=== PATIENT | male | born 1975 | race Hispanic/Latino ===

== ENCOUNTER → 2020-09-30 | Emergency (ER) | LOC: ER 19:39 | DX: Z02.9 Encounter for administrative examinations, unspecified (principal) ==

== ENCOUNTER 2025-03-28 22:32 | Emergency (ER) | payer SELFPAY ==
--- OUTSIDE RECORDS SUMMARY | 2025-03-28 22:58 | XMS REPORT | Continuity of Care Document ---
Author Name Unknown Address [address] 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 Name Role Phone SUMMER ESQUEDA Primary Care Physician Twin Yanez Attending Clinician Unavailable GUILLE RAMIREZ Attending Clinician Unavailable LARRY YUAN Attending Clinician Unavailable CHRISTIAN STONE Attending Clinician Unavailabl DENNIS Gautam Attending Clinician Unavailab SANDRA Rhodes Attending Clinician Unavailable IHDE_G Attending Clinician Unavailable Мария Berry Attending Clinician Unavailab RENU Dexter Attending Clinician Unavailable ELENA MERIDA Attending Clinician Unavailable AMBREEN_FARHANA Attending Clinician Unavailable RICHIE MUÑOZ MD(DO NOT USE) Attending Clinic carlitos Unavailable STEPHAN GRAY Attending Clinician Unavailable DENG LOONEY Attending Clinician Unavailabl kinjal Motley Attending Clinician Unavailable PEACE LEIVA Attending Clinician Unavailable Jw Jurado I. Attending Clinician Unavailabl SARI Giraldo Attending Clinician Unavailable CHERY CAMARGO Attending Clinician Unavaila SHANNAN Johnson Attending Clinician Unavailable GRIFFIN BRASHER Attending Clinician Unavailabl e SNEHA JACINTO Attending Clinician Unavailab JOSÉ MIGUEL Samson Attending Clinician Unavailable STEFFI FERNÁNDEZ Attending Clinician Unav LANRE Leggett Attending Clinician UnavailRYAN Atkinson Attending Clinician Unavail able IDA HAZEL Attending Clinician Unavail able RENAE RIVAS Attending Clinician Unavailable MT MCELROY Attending Clinician Unavailable TABITHA CHO Attending Clinician Unavail able JACOB MOTT Attending Clinician Unavailable Kwabena Miramontes Attending Clinician Unavailab JASMYNE Gutierrez Attending Clinician Unavailable KERRI FISH Attending Clinician Unavailable MADDY SCHREIBER Attending Clinician Unavailable KARUNA BUSTOS Attending Clinician Unavailab YURIY Brito Attending Clinician Unavailable JEFFERY MATA Attending Clinician UnaSAAD Estes Attending Clinician Unavailable IHDE_G Admitting Clinician Unavailable AMBREEN_FARHANA Admitting Clinician Unavailable Tiesha Admitting Clinician Unavailable RYAN SERVIN Admitting Clinician Unavail able Payers Payer Name Policy Type Policy Number Effective Date Expirati on Date Source [id number] [facility] [id number] 2021 00:00:00 2022 00:00:00 [facility] [id number] Problems Condition Name Condition Details Condition Category Status Onset Date Resolution Date Last Treatment Date Treating Clinician Comments Source Obese Obese Problem Active 08-31 00:00: 00 [facility] Acute urinary tract infection Acute Urinary Tract Infection Problem Active 3 00:00: 00 [facility] Menopausal symptom Menopausal Symptom Problem Active 07-24 00:00: 00 [facility] Fatigue Fatigue Problem Active 07-24 00:00: 00 [facility] Stenosis of cervix Stenosis of Cervix Problem Active 2023-07 2 00:00: 00 [facility] Abnormal uterine bleeding Abnormal Uterine Bleeding Problem Active 2023-07 00:00: 00 [facility] Irregular periods Irregular Periods Problem Active 2023-07 1 00:00: 00 [facility] Hypothyroi dism Hypothyroi dism Problem Active 2023-07 0 00:00: 00 [facility] Anxiety Anxiety Problem Active 2023-07 0 00:00: 00 [facility] Candidiasi s Candidiasi s Problem Active [facility] 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 [facility] Obesity Obesity Problem Active [facility] Anxiety disorder Anxiety Disorder Problem Active [facility] Generalize d anxiety disorder Generalize d Anxiety Disorder Problem Active [facility] Dysthymia Dysthymia Problem Active [facility] 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 Problem Active [facility] Mild depression Mild Depression Problem Active [facility] Lesion of eyelid Lesion of Eyelid Problem Active [facility] Otitis media Otitis Media Problem Active [facility] Otalgia Otalgia Problem Active [facility] Acute sinusitis Acute Sinusitis Problem Active [facility] Nasal discharge Nasal Discharge Problem Active [facility] Sinusitis Sinusitis Problem Active [facility] Seasonal allergic rhinitis Seasonal Allergic Rhinitis Problem Active [facility] Nasal obstructio n Nasal Obstructio n Problem Active [facility] Influenza Influenza Problem Active [facility] Asthma Asthma Problem Active [facility] Reactive airway disease Reactive Airway Disease Problem Active [facility] Toothache Toothache Problem Active [facility] Gastroesop hageal reflux disease Gastroesop hageal Reflux Disease Problem Active [facility] Irritable bowel syndrome Irritable Bowel Syndrome Problem Active [facility] Cervical disc disorder Cervical Disc Disorder Problem Active [facility] Spasm of back muscles Spasm of Back Muscles [facility] Plantar fasciitis Plantar Fasciitis Problem [facility] Spasm Spasm Problem Active [facility] Influenza- like symptoms Influenza- like Symptoms Problem Active [facility] Failure to lose weight Failure to Lose Weight Problem Active [facility] Dyspnea Dyspnea Problem Active [facility] Expiratory wheezing Expiratory Wheezing Problem Active [facility] Inspirator y wheezing Inspirator y Wheezing Problem Active [facility] Wheezing Wheezing Problem Active [facility] Tight chest Tight Chest Problem [facility] Increased frequency of urination Increased Frequency of Urination Problem [facility] Urinary symptoms Urinary Symptoms Problem [facility] Mammograph ic breast mass Mammograph ic Breast Mass Problem Active [facility] Inadequate vitamin B12 intake Inadequate Vitamin B12 Intake Problem Active [facility] Hypertroph y of nasal turbinates Hypertroph y of Nasal Turbinates Problem Active [facility] Gastroente ritis Problem [facility] Greater trochanter ic bursitis of right hip Problem [facility] Headache Problem [facility] Hypokalemi a Problem [facility] Hypoxemia Problem [facility] Sprain and strain of elbow and forearm Problem [facility] Abdominal cramping Problem [facility] Vaginal bleeding Problem [facility] Influenza due to influenza A virus Problem [facility] Left inguinal pain Problem [facility] Strain [facility] lumbar region Problem [facility] Microcytic anemia Problem [facility] Multifocal pneumonia Problem [facility] Nausea Problem [facility] Plantar fascial fibromatos is Problem [facility] Postnasal drip Problem [facility] Inflammati on of sacroiliac joint Problem [facility] Sinus tachycardi a Problem [facility] Sprain Problem [facility] Sprain of ankle Problem [facility] Sprain of foot Problem [facility] Sprain of hip Problem [facility] Sprain of toe Problem [facility] Tachycardi a Problem [facility] Acute upper respirator y infection Problem [facility] Fluid in endometria l cavity Problem [facility] Pelvic cramping Problem [facility] Abdominal pain Problem [facility] Acute bronchitis Problem [facility] Acute infective gastroente ritis Problem [facility] Acute wheezy bronchitis Problem [facility] Bronchitis Problem [facility] Infection due to severe acute respirator y syndrome coronaviru s 2 (SARS-CoV- 2) Problem [facility] Chest pain Problem [facility] Cholelithi asis with cholecysti tis Problem [facility] Chronic low back pain Problem [facility] Constipati on Problem [facility] Cough Problem [facility] Dehydratio n Problem [facility] Dysfunctio nal uterine bleeding Problem [facility]ever Problem [facility] Gastroente ritis Problem [facility] Sacroiliit is Sacroiliit is Problem [facility] Chronic pain syndrome Chronic pain syndrome Problem [facility] Other chronic pain Other chronic pain Problem [facility] Greater trochanter ic bursitis of right hip Greater trochanter ic bursitis of right hip Problem [facility] Greater trochanter ic bursitis of left hip Greater trochanter ic bursitis of left hip Problem [facility] Allergies, Adverse Reactions, Alerts Allergy Name Allergy Type Status Severity Reaction(s) Onset Date Inactive Date Treating Clinician Comments Source Carisopr odol ([id number]) Allergy to substanc e Active Unknown 2016-07 00:00: 00 [facility] Lyrica Allergy to substanc e Active [facility] Soma Allergy to substanc e Active [facility] Ultram Allergy to substanc e Active [facility] Social History Social Habit Start Date Stop Date Quantity Comments Source History of Tobacco Use [facility] Sex Assigned At [facility] Smoking Status Start Date Stop Date Source Never Smoker [facility] Medications Ordered Medication Name Filled Medication Name Start Date Stop Date Current Medication? Ordering Clinician Indication Dosage Frequency Signature (SIG) Comments Components Source Ketorolac Tromethamin e (Toradol 10 Mg*) 10 Mg TAB Ketorolac Tromethamin e (Toradol 10 Mg*) 10 Mg TAB 03-07 01:14: 00 Yes 1{tbl} [facility] HYDROcodone -Acetaminop hen 10-325 MG HYDROcodone -Acetaminop hen 10-325 MG - 00:00: 00 No 1{table t_as_ne eded} QD HYDROcodon e-Acetamin ophen 10-325 MG Medrol 4 MG Medrol 4 MG - 00:00: 00 No Medrol 4 MG Pseudoephed -Bromphen-D m (Bromphen/P seudoephedr ine 30-2-10 Mg/5ML) 1 Syp Syrup Pseudoephed -Bromphen-D m (Bromphen/P seudoephedr ine 30-2-10 Mg/5ML) 1 Syp Syrup 03-29 11:45: 00 Yes 5 [facility] Albuterol (Ventolin Hfa *) 90 Mcg/Act INH Albuterol (Ventolin Hfa *) 90 Mcg/Act INH 03-29 11:44: 00 Yes 2 [facility] Oseltamivir Phosphate (Tamiflu *) 75 Mg CAP Oseltamivir Phosphate (Tamiflu *) 75 Mg CAP 03-29 11:44: 00 Yes 75mg [facility] Nirmatrelvi r-Ritonavir 300/100 Mg (Paxlovid 300MG/100MG ) 1 Tab Tab Ther Pack Nirmatrelvi r-Ritonavir 300/100 Mg (Paxlovid 300MG/100MG ) 1 Tab Tab Ther Pack 2022-07 21:16: 00 Yes 1 [facility] Prednisone (Prednisone *) 20 Mg TAB Prednisone (Prednisone *) 20 Mg TAB 2022-07 21:15: 00 Yes 40mg [facility] Pantoprazol e Sodium (Protonix Ec *) [address] Pantoprazol e Sodium (Protonix Ec *) [address] 2022-07 09:52: 00 Yes 40mg [facility] Cephalexin Monohydrate (Keflex *) 500 Mg CAP Cephalexin Monohydrate (Keflex *) 500 Mg CAP 2022-07 00:01: 00 06-01 10:52 :00 No 500mg [facility] Methocarbam ol 750 MG Methocarbam ol 750 MG 02-21 00:00: 00 No 1{table t} Methocarba mol 750 MG Naproxen (Naproxen 500 Mg *) 500 Mg TAB Naproxen (Naproxen 500 Mg *) 500 Mg TAB 2020-07 018 01:00: 00 06-09 06:48 :00 No 1{tbl} [facility] metoprolol tartrate 25 mg tablet TAKE ONE (1) TABLET(S) BY MOUTH TWICE A DAY. metoprolol tartrate 25 mg tablet TAKE ONE (1) TABLET(S) BY MOUTH TWICE A DAY. 2018-07 0 00:00: 00 No metoprolol tartrate 25 mg tablet TAKE ONE (1) TABLET(S) BY MOUTH TWICE A DAY. [facility] Fluoxetine Hcl * (Fluoxetine 20 Mg (Prozac) *) 20 Mg CAP Fluoxetine Hcl * (Fluoxetine 20 Mg (Prozac) *) 20 Mg CAP 12-31 13:08: 09 12-31 13:08 :00 No 20mg [facility] Levothyroxi ne Sodium (Synthroid 25 Mcg*) 25 Mcg TAB Levothyroxi ne Sodium (Synthroid 25 Mcg*) 25 Mcg TAB 12-31 13:08: 08 12-31 13:08 :00 No 25ng [facility] Norethindro ne/Ethinyl Est * (Necon 35 *) 1 Tab TAB Norethindro ne/Ethinyl Est * (Necon 35 *) 1 Tab TAB 12-31 13:08: 08 12-31 13:08 :00 No 1{tbl} [facility] Azithromyci n (Zithromax *) 500 Mg TAB Azithromyci n (Zithromax *) 500 Mg TAB 12-30 05:09: 00 02-11 11:36 :00 No 500mg [facility] Metronidazo le (Flagyl *) 500 Mg TAB Metronidazo le (Flagyl *) 500 Mg TAB 12-30 05:09: 00 02-11 11:36 :00 No 500mg [facility] Ondansetron Hcl (Zofran *) 4 Mg TAB Ondansetron Hcl (Zofran *) 4 Mg TAB 12-30 05:09: 00 12-31 13:08 :00 No 1{tbl} [facility] Tramadol/Ap ap * (Ultracet 37.5/325 Mg *) 1 Tab TAB Tramadol/Ap ap * (Ultracet 37.5/325 Mg *) 1 Tab TAB 12-30 05:09: 00 12-31 13:08 :00 No 1{tbl} [facility] Azithromyci n (Zithromax Z-Richard *) 1 Tab TAB Azithromyci n (Zithromax Z-Richard *) 1 Tab TAB 2015-07 14:32: 00 12-31 13:08 :00 No 250mg [facility] Cefdinir (Omnicef*) 300 Mg CAP Cefdinir (Omnicef*) 300 Mg CAP 2015-07 14:32: 00 12-31 13:08 :00 No 1 [facility] Levalbutero l Hcl Levalbutero l Hcl 2015-07 14:32: 00 12-31 13:08 :00 No 1.25mg [facility] Metoprolol Tartrate Metoprolol Tartrate 2015-07 14:32: 00 12-31 13:08 :00 No 25mg [facility] Promethazin e/Codeine Promethazin e/Codeine 2015-07 14:32: 00 12-31 13:08 :00 No 5mL [facility] Acetaminoph en W/ Codeine #3 * (Tylenol Codeine #3 300MG/30MG *) 1 Tab TAB Acetaminoph en W/ Codeine #3 * (Tylenol Codeine #3 300MG/30MG *) 1 Tab TAB 2014-07 09:06: 00 09-16 06:09 :00 No 1 [facility] Tramadol Hcl (Ultram *) 50 Mg TAB Tramadol Hcl (Ultram *) 50 Mg TAB 2012-07 11:53: 00 05-04 12:00 :00 No 50mg [facility] levothyroxi ne 75 mcg capsule Take 1 capsule every day by oral route. levothyroxi ne 75 mcg capsule Take 1 capsule every day by oral route. No 1capsul e(s) Q1D levothyrox ine 75 mcg capsule Take 1 capsule every day by oral route. [facility] lorazepam lorazepam No lorazepam [facility] metoprolol succinate ER 25 mg tablet,exte nded release 24 hr Take 1 tablet every day by oral route. metoprolol succinate ER 25 mg tablet,exte nded release 24 hr Take 1 tablet every day by oral route. No 1 Q1D metoprolol succinate ER 25 mg tablet,ext ended release 24 hr Take 1 tablet every day by oral route. [facility] estradiol 0.1 mg/24 hr semiweekly transdermal patch Apply 1 patch twice a week by transdermal route for 90 days. estradiol 0.1 mg/24 hr semiweekly transdermal patch Apply 1 patch twice a week by transdermal route for 90 days. No 1patch( es) Q3.5D estradiol 0.1 mg/24 hr semiweekly transderma l patch Apply 1 patch twice a week by transderma l route for 90 days. [facility] progesteron e micronized 200 mg capsule Take 1 capsule every day by oral route for 90 days. progesteron e micronized 200 mg capsule Take 1 capsule every day by oral route for 90 days. No 1capsul e(s) Q1D progestero ne micronized 200 mg capsule Take 1 capsule every day by oral route for 90 days. [facility] levothyroxi ne 50 mcg capsule Take 1 capsule every day by oral route. levothyroxi ne 50 mcg capsule Take 1 capsule every day by oral route. No 1capsul e(s) Q1D levothyrox ine 50 mcg capsule Take 1 capsule every day by oral route. [facility] Metoprolol Succinate ER 25 MG Metoprolol Succinate ER 25 MG No Metoprolol Succinate ER 25 MG Colchicine 0.6 MG Colchicine 0.6 MG No Colchicine 0.6 MG Famotidine 20 MG Famotidine 20 MG No Famotidine 20 MG Levothyroxi ne Sodium 75 MCG Levothyroxi ne Sodium 75 MCG No Levothyrox ine Sodium 75 MCG ibuprofen 800 mg tablet TAKE 1 TABLET (800 MG TOTAL) BY MOUTH EVERY 8 (EIGHT) HOURS IF NEEDED FOR MILD PAIN ibuprofen 800 mg tablet TAKE 1 TABLET (800 MG TOTAL) BY MOUTH EVERY 8 (EIGHT) HOURS IF NEEDED FOR MILD PAIN No ibuprofen 800 mg tablet TAKE 1 TABLET (800 MG TOTAL) BY MOUTH EVERY 8 (EIGHT) HOURS IF NEEDED FOR MILD PAIN [facility] levothyroxi ne 50 mcg tablet TAKE 1 TABLET (50 MCG TOTAL) BY MOUTH 1 (ONE) TIME EACH DAY levothyroxi ne 50 mcg tablet TAKE 1 TABLET (50 MCG TOTAL) BY MOUTH 1 (ONE) TIME EACH DAY No levothyrox ine 50 mcg tablet TAKE 1 TABLET (50 MCG TOTAL) BY MOUTH 1 (ONE) TIME EACH DAY [facility] levothyroxi ne 75 mcg tablet TAKE 1 TABLET (75 MCG TOTAL) BY MOUTH 1 (ONE) TIME EACH DAY levothyroxi ne 75 mcg tablet TAKE 1 TABLET (75 MCG TOTAL) BY MOUTH 1 (ONE) TIME EACH DAY No levothyrox ine 75 mcg tablet TAKE 1 TABLET (75 MCG TOTAL) BY MOUTH 1 (ONE) TIME EACH DAY [facility] lorazepam 0.5 mg tablet TAKE 1 TABLET (0.5 MG TOTAL) BY MOUTH EVERY 6 (SIX) HOURS IF NEEDED FOR ANXIETY lorazepam 0.5 mg tablet TAKE 1 TABLET (0.5 MG TOTAL) BY MOUTH EVERY 6 (SIX) HOURS IF NEEDED FOR ANXIETY No lorazepam 0.5 mg tablet TAKE 1 TABLET (0.5 MG TOTAL) BY MOUTH EVERY 6 (SIX) HOURS IF NEEDED FOR ANXIETY [facility] Macrobid 100 mg capsule Take 1 capsule every 12 hours by oral route for 7 days, for Urinary tract infection.. Macrobid 100 mg capsule Take 1 capsule every 12 hours by oral route for 7 days, for Urinary tract infection.. No 1capsul e(s) Q12H Macrobid 100 mg capsule Take 1 capsule every 12 hours by oral route for 7 days, for Urinary tract infection. . [facility] methocarbam ol 750 mg tablet TAKE ONE (1) TABLET(S) BY MOUTH TWICE A DAY. methocarbam ol 750 mg tablet TAKE ONE (1) TABLET(S) BY MOUTH TWICE A DAY. No methocarba mol 750 mg tablet TAKE ONE (1) TABLET(S) BY MOUTH TWICE A DAY. [facility] metoprolol succinate ER 25 mg tablet,exte nded release 24 hr TAKE ONE (1) TABLET(S) BY MOUTH ONCE A DAY. metoprolol succinate ER 25 mg tablet,exte nded release 24 hr TAKE ONE (1) TABLET(S) BY MOUTH ONCE A DAY. No metoprolol succinate ER 25 mg tablet,ext ended release 24 hr TAKE ONE (1) TABLET(S) BY MOUTH ONCE A DAY. [facility] montelukast 10 mg tablet TAKE 1 TABLET (10 MG TOTAL) BY MOUTH EVERY NIGHT montelukast 10 mg tablet TAKE 1 TABLET (10 MG TOTAL) BY MOUTH EVERY NIGHT No montelukas t 10 mg tablet TAKE 1 TABLET (10 MG TOTAL) BY MOUTH EVERY NIGHT [facility] progesteron e micronized 200 mg capsule TAKE 1 CAPSULE EVERY DAY BY ORAL ROUTE FOR 90 DAYS. progesteron e micronized 200 mg capsule TAKE 1 CAPSULE EVERY DAY BY ORAL ROUTE FOR 90 DAYS. No progestero ne micronized 200 mg capsule TAKE 1 CAPSULE EVERY DAY BY ORAL ROUTE FOR 90 DAYS. [facility] Pyridium 100 mg tablet Take 1 tablet 3 times a day by oral route for 2 days, for Pain with urination. Pyridium 100 mg tablet Take 1 tablet 3 times a day by oral route for 2 days, for Pain with urination. No 1 TID Pyridium 100 mg tablet Take 1 tablet 3 times a day by oral route for 2 days, for Pain with urination. [facility] estradiol 0.1 mg/24 hr semiweekly transdermal patch APPLY 1 PATCH TWICE A WEEK BY TRANSDERMAL ROUTE FOR 30 DAYS. estradiol 0.1 mg/24 hr semiweekly transdermal patch APPLY 1 PATCH TWICE A WEEK BY TRANSDERMAL ROUTE FOR 30 DAYS. No estradiol 0.1 mg/24 hr semiweekly transderma l patch APPLY 1 PATCH TWICE A WEEK BY TRANSDERMA L ROUTE FOR 30 DAYS. [facility] hydrocodone 10 mg-acetamin ophen 325 mg tablet TAKE ONE (1) TABLET(S) BY MOUTH ONCE A DAY NEEDED FOR 30 DAYS. hydrocodone 10 mg-acetamin ophen 325 mg tablet TAKE ONE (1) TABLET(S) BY MOUTH ONCE A DAY NEEDED FOR 30 DAYS. No hydrocodon e 10 mg-acetami nophen 325 mg tablet TAKE ONE (1) TABLET(S) BY MOUTH ONCE A DAY NEEDED FOR 30 DAYS. [facility] Vital Signs Vital Name Observation Time Observation Value Comments S ource Height 2025-03-07 00:01:00 [id number] cm [facility] Weight 2025-03-07 00:01:00 63.091420 kg [facility] BMI (Body Mass Index) 2025-03-07 00:01:00 28.3 kg/m2 [facility] Height 2025-03-04 22:00:00 149.447125 cm [facility] Weight 2025-03-04 22:00:00 63.464869 kg [facility] BMI (Body Mass Index) 2025-03-04 22:00:00 28.3 kg/m2 [facility] height 2024-09-17 13:15:00 59 [in_i] [facility] weight-kg 2024-09-17 13:15:00 68.04 kg [facility] bmi 2024-09-17 13:15:00 30.29 kg/m2 [facility] heart rate 2024-09-17 13:15:00 86 /min [facility] blood pressure systolic 2024-09-17 13:15:00 117 mm[Hg] [facility] blood pressure diastolic 2024-09-17 13:15:00 70 mm[Hg] [facility] BMI (Body Mass Index) 2024-08-31 00:00:00 32.9 kg/m2 [facility] BP Diastolic 2024-08-31 00:00:00 79 mm[Hg] [facility] Body Weight 2024-08-31 00:00:00 2608 [oz_av] Kathie tagorda [facility] Height 2024-08-31 00:00:00 59 [in_i] Min salmerona [facility] BP Systolic 2024-08-31 00:00:00 115 mm[Hg] Sd hollanda [facility] BMI (Body Mass Index) 2024-07-24 00:00:00 33.7 kg/m2 [facility] Body Weight 2024-07-24 00:00:00 167 [lb_av] [facility] BP Systolic 2024-07-24 00:00:00 128 mm[Hg] [facility] Height 2024-07-24 00:00:00 59 [in_i] [facility] BP Diastolic 2024-07-24 00:00:00 88 mm[Hg] [facility] height 2024-06-18 13:00:00 59 [in_i] [facility] weight-kg 2024-06-18 13:00:00 71.67 kg [facility] bmi 2024-06-18 13:00:00 31.91 kg/m2 [facility] heart rate 2024-06-18 13:00:00 83 /min [facility] blood pressure systolic 2024-06-18 13:00:00 113 mm[Hg] [facility] blood pressure diastolic 2024-06-18 13:00:00 86 mm[Hg] [facility] Height 2024-06-13 00:00:00 59 [in_i] [facility] Body Weight 2024-06-13 00:00:00 159.4 [lb_av] [facility] BMI (Body Mass Index) 2024-06-13 00:00:00 32.2 kg/m2 [facility] BP Systolic 2024-06-13 00:00:00 124 mm[Hg] [facility] BP Diastolic 2024-06-13 00:00:00 76 mm[Hg] [facility] BMI (Body Mass Index) 2024-04-18 00:00:00 32.2 kg/m2 [facility] BP Systolic 2024-04-18 00:00:00 125 mm[Hg] [facility] Body Weight 2024-04-18 00:00:00 159.4 [lb_av] [facility] Height 2024-04-18 00:00:00 59 [in_i] [facility] BP Diastolic 2024-04-18 00:00:00 78 mm[Hg] [facility] Height 2024-03-29 10:37:00 160.592882 cm [facility] [facility] Weight 2024-03-29 10:37:00 73.769533 kg [facility] BMI (Body Mass Index) 2024-03-29 10:37:00 28.9 kg/m2 [facility] height 2024-03-20 13:15:00 59 [in_i] [facility] weight-kg 2024-03-20 13:15:00 72.57 kg [facility] bmi 2024-03-20 13:15:00 32.31 kg/m2 [facility] heart rate 2024-03-20 13:15:00 102 /min [facility] blood pressure systolic 2024-03-20 13:15:00 121 mm[Hg] [facility] blood pressure diastolic 2024-03-20 13:15:00 67 mm[Hg] [facility] Procedures Procedure Date / Time Performed Performing Clinician Source Hysteroscopy Biopsy 2024-05-23 00:00:00 [facility] MAMMO, screening, digital, bilateral 2024-05-09 00:00:00 [facility] US TRANSVAGINAL 2024-05-02 00:00:00 [facility] MAMMO, screening, digital, bilateral 2024-04-18 00:00:00 [facility] Cholecystectomy (Gallbladder) 2019-06-01 00:00:00 [facility] NM, hepatobiliary scan, w/ CCK 2019-04-17 00:00:00 [facility] Fasciotomy of Foot 2015-05-07 00:00:00 Kathie tagordpriscilla [facility] Egd 2014-08-28 00:00:00 [facility] Colonoscopy 2011-07-02 00:00:00 [facility] Anesth Tubal Ligation 1995-07-02 00:00:00 [facility] Cholecystectomy [facility] Tubal Ligation [facility] Procedure on Foot [facility] ical Encounters Start Date/Time End Date/Time Encounter Type Admission Type Attending Clinicians Care Facility Care Department Encounter ID Source 2024-09-11 12:23:00 [facility] [id number] [facility] 2024-09-02 10:10:01 [facility] [id number] [facility] 2024-06-17 11:30:00 Inpatient GUILLE DODSON [facility] [id number] [facility] 2024-03-20 13:06:01 [facility] [id number] [facility] 2025-03-06 23:53:00 2025-03-07 01:20:00 Emergency ER LARRY YUAN [facility] [id number] [facility] 2025-03-06 23:53:00 2025-03-07 01:20:00 Departed Emergency Room [facility] [id number] 58 [facility] 2025-03-04 21:54:00 2025-03-05 00:13:00 Emergency ER CHRISTIAN STONE [facility] [id number] [facility] 2025-03-04 21:54:00 2025-03-05 00:13:00 Departed Emergency Room [facility] [id number] 80 [facility] 2024-09-17 00:00:00 2024-09-17 00:00:00 Office Visit- Est Pt.- Level 4 CLS [facility] [id number] [facility] 2024-09-04 00:00:00 2024-09-04 00:00:00 Carrie Badillo, SYSTEMS SOFTWARE SPECIALIST: [address], [place] [address] , Ph. [facility] - [facility]BZW_[facility]* [id number] [facility] 2024-09-02 00:00:00 2024-09-02 00:00:00 (WEB) CLS CLS [id number] [facility] 2024-08-31 00:00:00 2024-08-31 00:00:00 Li Valente, TANK CLEANER: [address] [address] , Ph. [facility] Expansion [id number] [id number] [facility] h Program 2024-08-31 00:00:00 2024-08-31 00:00:00 (WEB) CLS CLS [id number] [facility] 2024-08-20 00:00:00 2024-08-20 00:00:00 (WEB) CLS CLS [id number] [facility] 2024-07-24 00:00:00 2024-07-24 00:00:00 BHARATH DelacruzP: [address], [place] [address] , Ph. [facility] - [facility]BZ[facility]* [id number] [facility] 2024-07-21 00:00:00 2024-07-21 00:00:00 (WEB) [facility] [id number] Behzad jones 2024-06-18 00:00:00 2024-06-18 00:00:00 Office Visit- Est Pt.- Level 4 CLS [facility] [id number] Behzad jones 2024-06-13 00:00:00 2024-06-13 00:00:00 Geeta Rutledge MD: [address], [place] [address] , Ph. [facility] - [facility]* [id number] [facility] 2024-06-11 00:00:00 2024-06-11 00:00:00 (WEB) [facility] [id number] Behzad jones 2024-05-23 00:00:00 2024-05-23 00:00:00 Geeta Rutledge MD: [address], [place] [address] , Ph. [facility] - [facility]* [id number] [facility] 2024-05-21 00:00:00 2024-05-21 00:00:00 (WEB) [facility] [id number] Behzad jones 2024-05-09 00:00:00 2024-05-09 00:00:00 BOONE Chavez: [address], [place] [address] , Ph. [facility] - [facility]* [id number] [facility] 2024-05-02 00:00:00 2024-05-02 00:00:00 Geeta Rutledge MD: [address], [place] [address] , Ph. [facility] - GC_GCBZW_Magui lazo Isom* [id number] [facility] 2024-04-23 00:00:00 2024-04-23 00:00:00 (WEB) CLS CLS [id number] [facility] 2024-04-18 00:00:00 2024-04-18 00:00:00 BOONE Chavez: [address], [place] [address] , Ph. [facility] - GC_GCBZW_Magui lazo Isom* [id number] [facility] 2024-03-29 10:24:00 2024-03-29 12:56:00 Emergency ER ROSADO DENNIS [facility] [id number] [facility] 2024-03-29 10:24:00 2024-03-29 12:56:00 Departed Emergency Room [facility] [id number] [facility] 2024-03-27 00:00:00 2024-03-27 00:00:00 (WEB) CLS CLS [id number] [facility] 2024-03-20 00:00:00 2024-03-20 00:00:00 Office Visit- Est Pt.- Level 4 CLS CLS [id number] [facility] 2023-06-27 19:41:00 2023-06-27 22:42:00 Emergency ER SANDRA CISNEROS [facility] [id number] [facility] 2023-06-08 09:42:00 2023-06-08 09:42:00 Outpatient Мария Go [facility] [id number] [facility] 2023-06-01 10:02:00 2023-06-01 10:02:00 Outpatient Мария Go [facility] [id number] [facility] 2023-05-16 20:58:00 2023-05-17 01:26:00 Emergency ER SANDRA CISNEROS [facility] [id number] [facility] 2023-03-22 10:06:00 2023-03-22 10:06:00 Outpatient RENU GUILLEN [facility] [id number] [facility] 2022-07-06 11:33:00 2022-07-06 11:33:00 Outpatient Мария Go [facility] [id number] [facility] 2022-06-07 11:00:00 2022-07-01 00:01:00 Outpatient ELENA GARCIA [facility] [id number] [facility] 2022-06-09 06:05:00 2022-06-09 06:05:00 Outpatient Мария Go [facility] [id number] [facility] 2022-06-05 13:00:00 2022-06-05 13:00:00 Outpatient ELENA GARCIA [facility] [id number] [facility] 2022-06-01 06:58:00 2022-06-01 06:58:00 Outpatient ELENA GARCIA [facility] [id number] [facility] 2022-05-30 13:00:00 2022-05-31 00:01:00 Outpatient ELENA GARCIA [facility] [id number] [facility] 2022-05-23 13:00:00 2022-05-23 13:00:00 Outpatient ELENA GARCIA [facility] [id number] [facility] 2022-05-19 13:00:00 2022-05-19 13:00:00 Outpatient IMCHEL MERIDAELENA [facility] [id number] [facility] 2022-05-12 12:53:00 2022-05-12 12:53:00 Outpatient ELENA GARCIA [facility] [id number] [facility] 2022-05-04 12:17:00 2022-05-04 12:17:00 Outpatient MICHEL CarneyМария jolly [facility] [id number] [facility] 2021-04-17 22:27:00 2021-04-18 02:19:00 Emergency ER TONIRICHIE BOWMAN [facility] [id number] [facility] 2021-04-03 21:39:00 2021-04-03 23:50:00 Emergency ER STEPHAN GRAY [facility] [id number] [facility] 2020-12-31 15:28:00 2020-12-31 15:28:00 Outpatient MICHEL BERRY МАРИЯ [facility] [id number] [facility] 2020-12-13 12:26:00 2020-12-13 12:26:00 Outpatient MICHEL SORENSONDENG BELLE [facility] [id number] [facility] 2020-03-02 18:22:00 2020-03-02 21:45:00 Emergency ER PEACE LEIVA [facility] [id number] [facility] 2019-08-29 10:21:00 2019-08-29 10:21:00 Outpatient Jw Suarez [facility] [id number] [facility] 2019-05-12 06:45:00 2019-05-12 06:45:00 Outpatient SARI COSBY [facility] [id number] [facility] 2019-05-07 10:26:00 2019-05-07 10:26:00 Outpatient Jw Suarez [facility] [id number] [facility] 2019-04-24 06:30:00 2019-04-24 06:30:00 Outpatient SARI COSBY [facility] [id number] [facility] 2019-03-11 09:43:00 2019-03-11 09:43:00 Outpatient Jw Suarez [facility] [id number] [facility] 2019-02-26 21:38:00 2019-02-26 23:53:00 Emergency ER CHERY CAMARGO [facility] [id number] [facility] 2019-02-10 09:34:00 2019-02-10 09:34:00 Outpatient Jw Suarez [facility] [id number] [facility] 2018-12-30 03:09:00 2018-12-30 06:26:00 Emergency ER SHANNAN PRUITT [facility] [id number] [facility] 2018-12-23 09:41:00 2018-12-23 09:41:00 Outpatient Jw Suarez [facility] [id number] [facility] 2018-06-01 13:44:00 2018-06-01 14:34:00 Emergency ER GRIFFIN BRASHER [facility] [id number] [facility] 2018-04-06 09:14:00 2018-04-06 12:12:00 Emergency ER SNEHA JACINTO [facility] [id number] [facility] 2017-10-16 15:26:00 2017-10-16 15:26:00 Outpatient JOSÉ MIGUEL VAUGHAN [facility] [id number] [facility] 2017-10-03 15:14:00 2017-10-03 15:14:00 Outpatient JOSÉ MIGUEL VAUGHAN [facility] [id number] [facility] 2016-12-13 09:51:00 2016-12-13 09:51:00 Outpatient STEFFI ALONZO [facility] [id number] [facility] 2016-11-30 08:08:00 2016-11-30 08:08:00 Outpatient JOSÉ MIGUEL VAUGHAN [facility] [id number] [facility] 2016-09-19 10:19:00 2016-09-19 10:19:00 Outpatient JOSÉ MIGUEL VAUGHAN [facility] [id number] [facility] 2016-07-17 12:57:00 2016-07-17 12:57:00 Outpatient JOSÉ MIGUEL VAUGHAN [facility] [id number] [facility] 2016-07-04 09:04:00 2016-07-04 09:04:00 Outpatient LANRE FIORE [facility] [id number] [facility] 2016-06-04 17:06:00 2016-06-07 16:22:00 Inpatient ER SERVIN, RYAN [facility] [id number] [facility] 2016-04-22 20:11:00 2016-04-22 21:40:00 Emergency ER ILIR IDA [facility] [id number] [facility] 2016-04-20 14:21:00 2016-04-20 14:21:00 Outpatient JOSÉ MIGUEL VAUGHAN [facility] [id number] [facility] 2015-09-17 05:55:00 2015-09-17 10:00:00 Emergency ER EVELYN RENAE [facility] [id number] [facility] 2015-06-30 13:12:00 2015-06-30 13:12:00 Outpatient MICHEL MCELROY MT [facility] [id number] [facility] 2015-05-07 06:17:00 2015-05-07 06:17:00 Outpatient Мария Go [facility] [id number] [facility] 2015-04-19 13:04:00 2015-04-19 13:04:00 Outpatient MT ZAMORA [facility] [id number] [facility] 2015-03-12 13:39:00 2015-03-12 13:39:00 Outpatient TABITHA VEGA [facility] [id number] [facility] 2015-01-08 09:00:00 2015-01-08 09:00:00 Outpatient JOSÉ MIGUEL VAUGHAN [facility] [id number] [facility] 2014-12-31 07:22:00 2014-12-31 07:22:00 Outpatient JACOB GLASS [facility] [id number] [facility] 2014-10-07 07:58:00 2014-10-07 07:58:00 Outpatient ALEIDA ZAMORATHI [facility] [id number] [facility] 2014-09-10 17:49:00 2014-09-10 19:41:00 Emergency ER SNEHA JACINTO [facility] [id number] [facility] 2014-06-22 10:23:00 2014-06-22 10:23:00 Outpatient RENU GUILLEN [facility] [id number] [facility] 2014-04-02 11:52:00 2014-04-02 11:52:00 Outpatient ALEIDA ZAMORATHI [facility] [id number] [facility] 2014-01-31 22:27:00 2014-02-01 00:37:00 Emergency ER Kwabena Miramontes [facility] [id number] [facility] 2013-11-21 11:38:00 2013-11-21 11:38:00 Outpatient MT ZAMORA [facility] [id number] [facility] 2013-10-20 14:40:00 2013-10-20 16:22:00 Emergency ER ORVILLE JEANISRRAEL [facility] [id number] [facility] 2013-10-08 11:09:00 2013-10-08 11:09:00 Outpatient MT ZAMORA [facility] [id number] [facility] 2013-08-20 17:42:00 2013-08-20 23:52:00 Emergency ER STEPHAN GRAY [facility] [id number] [facility] 2013-05-09 08:02:00 2013-05-09 12:11:00 Emergency ER ORVILLE SNEHA [facility] [id number] [facility] 2013-05-01 16:31:00 2013-05-01 18:34:00 Emergency ER JASMYNE BARCENAS [facility] [id number] [facility] 2013-02-18 12:46:00 2013-02-18 12:46:00 Outpatient MICHEL Jurado Jw [facility] [id number] [facility] 2013-01-06 08:39:00 2013-01-06 08:39:00 Outpatient Jw Suarez [facility] [id number] [facility] 2012-10-14 10:37:00 2012-10-14 10:37:00 Outpatient Jw Suarez [facility] [id number] [facility] 2012-10-05 05:14:00 2012-10-05 09:16:00 Emergency ER KERRI FISH [facility] [id number] [facility] 2012-08-06 14:23:00 2012-08-06 16:55:00 Emergency ER MiramontesKwabena funk [facility] [id number] [facility] 2012-08-05 06:55:00 2012-08-05 06:55:00 Outpatient SARI COSBY [facility] [id number] [facility] 2012-08-01 12:42:00 2012-08-01 12:42:00 Outpatient Jw Suarez [facility] [id number] [facility] 2012-05-21 15:13:00 2012-05-21 15:13:00 Outpatient Jw Suarez [facility] [id number] [facility] 2012-04-23 14:31:00 2012-04-23 14:31:00 Outpatient Jw Suarez [facility] [id number] [facility] 2010-12-25 22:37:00 2010-12-26 00:30:00 Emergency ER SNEHA JACINTO [facility] [id number] [facility] 2010-09-27 19:03:00 2010-09-28 02:00:00 Emergency ER SNEHA JACINTO [facility] [id number] [facility] 2009-09-07 16:14:00 2009-09-07 18:09:00 Emergency ER MADDY SCHREIBER [facility] [id number] [facility] 2009-02-15 00:45:00 2009-02-15 03:05:00 Emergency ER KARUNA BUSTOS [facility] [id number] [facility] 2007-07-18 01:32:00 2007-07-18 05:00:00 Emergency ER SNEHA JACINTO [facility] [id number] [facility] 2003-10-23 21:26:00 2003-10-23 23:00:00 Emergency ER YURIY MCWILLIAMS [facility] [id number] [facility] 2000-02-27 11:54:00 2000-02-27 11:54:00 Outpatient ER JEFFERY LAI [facility] [id number] [facility] 1999-09-13 09:06:00 1999-09-13 09:06:00 Outpatient SAAD SETH [facility] [id number] [facility] Results Test Description Test Time Test Comments Results Result Co mments Source [facility]trSerum or plasma urea nitrogen measurement (mass/volume)2025-03-07 00:41:00* Test Item Value Reference Range Interpretation Comme nts Blood Urea Nitrogen (test co de = 3094-0) 9 [facility] PldUVO3988-19-50 00:41:00* Test Item Value Reference Range Interpretation Comme nts Aspartate Amino Transf (AST/ SGOT) (test code = CPK2484) 21 [facility] CtrCreatinine ecazn6288-20-96 00:41:00* Test Item Value Reference Range Interpretation Comme nts Creatinine (test code = 988922869) 0.66 [facility] CtrEstimated glomerular filtration rate (GFR) fyszvyukiklvo5807-69-77 00:41:00* Test Item Value Reference Range Interpretation Comme [facility] Glomerular Filtration Rate C alc (test code = 582782728) > 60.00 [facility] CtrBUN/creatinine orrvr9043-41-58 00:41:00* Test Item Value Reference Range Interpretation Comme nts BUN/Creatinine Ratio (test c ode = 45425624) 13.6 [facility] CtrBody fluid potassium ukanqaebbqt4174-50-98 00:41:00* Test Item Value Reference Range Interpretation Comme nts Potassium Level (test code = 2821-7) 4.2 [facility] LzjBK29837-20-66 00:41:00* Test Item Value Reference Range Interpretation Comme nts Carbon Dioxide Level (test c ode = 24784107) 27 [facility] CtrAnion gap kjahplnoxve1056-35-02 00:41:00* Test Item Value Reference Range Interpretation Comme nts Anion Gap (test code = 43841181) 16.2 [facility] CtrCalcium lufnl7248-12-18 00:41:00* Test Item Value Reference Range Interpretation Comme nts Calcium Level (test code = 83920875) 9.5 [facility] CtrGlobulin ucy3769-22-91 00:41:00* Test Item Value Reference Range Interpretation Comme nts Globulin (test code = 005049174) 3.0 [facility] CtrALT (SGPT) ser/rkhb7068-04-82 00:41:00* Test Item Value Reference Range Interpretation Comme nts Alanine Aminotransferase (AL T/SGPT) (test code = 1742-6) 17 [facility] KjoTlgyau7526-87-57 00:41:00* Test Item Value Reference Range Interpretation Comme nts Lipase (test code = 340416883) 50 [facility] CtrALP ser/ndfd8452-09-15 00:41:00* Test Item Value Reference Range Interpretation Comme nts Total Alkaline Phosphatase ( test code = 6768-6) 82 [facility] CtrRBC count ur eqvm5300-10-06 00:32:00* Test Item Value Reference Range Interpretation Comme nts Urine RBC (test code = 798-9) 0-2 [facility] CtrUrine examination for white blood cells (WBC) 2025-03-07 00:32:00* Test Item Value Reference Range Interpretation Comme nts Urine WBC (test code = 537746758) 3-5 [facility] CtrAutomated epithelial cells count in urine sediment (number/area)2025-03-07 00:32:00* Test Item Value Reference Range Interpretation Comme nts Urine Epithelial Cells (test code = 52469-3) 6-10 [facility] CtrBacteria detection in urine sediment by light ktrifbcpnm1602-83-41 00:32:00* Test Item Value Reference Range Interpretation Comme nts Urine Bacteria (test code = 52027-5) Few [facility] CtrUrine casts detection by automated method 2025-03-07 00:32:00* Test Item Value Reference Range Interpretation Comme nts Urine Casts (test code = 96737-4) 0-2 [facility] CtrColor of Urine by Spdf5365-65-53 00:27:00* Test Item Value Reference Range Interpretation Comme nts Urine Color (test code = 99168-0) Yellow [facility] CtrAppearance of Stimv8744-85-51 00:27:00* Test Item Value Reference Range Interpretation Comme nts Urine Appearance (test code = 5767-9) Clear [facility] CtrUrine glucose wotxqulzv1840-19-88 00:27:00* Test Item Value Reference Range Interpretation Comme [facility] Urine Glucose (UA) (test cod e = 2349-9) Negative [facility] CtrBilirubin aw6394-14-82 00:27:00* Test Item Value Reference Range Interpretation Comme [facility] Urine Bilirubin (test code = 583003072) Negative [facility] CtrKetones sr3427-54-84 00:27:00* Test Item Value Reference Range Interpretation Comme nts Urine Ketones (test code = 56976441) Negative [facility] CtrSpecific gravity of Urine by Automated test strip 2025-03-07 00:27:00* Test Item Value Reference Range Interpretation Comme nts Urine Specific [place] (test code = 97446-4) 1.018 [facility] yifguczpt9169-05-02 00:27:00* Test Item Value Reference Range Interpretation Comme [facility] Urine Blood (test code = 166024-7) Negative [facility] CtrpH ya4080-00-15 00:27:00* Test Item Value Reference Range Interpretation Comme nts Urine pH (test code = 2756-5) 8.000 [facility] CtrProtein wh7223-89-06 00:27:00* Test Item Value Reference Range Interpretation Comme nts Urine Protein (test code = 07741239) Negative [facility] CtrUrobilinogen, urine, bh6316-52-88 00:27:00* Test Item Value Reference Range Interpretation Comme [facility] Urine Urobilinogen (test cod e = 503744493) 1.0 [facility] nitrate eqskhcomd5301-47-25 00:27:00* Test Item Value Reference Range Interpretation Comme nts Urine Nitrate (test code = 28019-9) Negative [facility] CtrUrine leukocyte esterase zqewkhxvh5865-48-30 00:27:00* Test Item Value Reference Range Interpretation Comme nts Urine Leukocyte Esterase (te st code = 747107-9) 1+ [facility] CtrAbsolute eosinophil pmukx3301-17-75 00:25:00* Test Item Value Reference Range Interpretation Comme nts Eosinophils # (Auto) (test c ode = DBM1283) 0.13 [facility] CtrRBC wvsxj4600-52-53 00:25:00* Test Item Value Reference Range Interpretation Comme nts Red Blood Count (test code = 53899547) 4.68 [facility] EekSffzzxeptn9779-05-69 00:25:00* Test Item Value Reference Range Interpretation Comme nts Hematocrit (test code = 24804816) 43.3 [facility] CtrMCV (mean corpuscular volume) determination 2025-03-07 00:25:00* Test Item Value Reference Range Interpretation Comme [facility] Mean Corpuscular Volume (ari t code = 28103-8) 92.5 [facility]tr[facility] corpus[facility] hemoglobin (MCH) determination 2025-03-07 00:25:00* Test Item Value Reference Range Interpretation Comme [facility] Mean Corpuscular Hemoglobin (test code = 50731275) 31.6 [facility] (MCHC) [id number] 00:25:00* Test Item Value Reference Range Interpretation Comme [facility] Mean Corpuscular Hemoglobin Concent (test code = 28207659) 34.2 [facility]tr[facility] distribution width coefficient of variation 2025-03-07 00:25:00* Test Item Value Reference Range Interpretation Comme [facility] Red Cell Distribution Width (test code = 08867177) 13.8 [facility] CtrPlatelet jnytg7925-03-15 00:25:00* Test Item Value Reference Range Interpretation Comme [facility] Platelet Count (test code = 53689741) 297 [facility] CtrMean platelet xsslnd7709-70-94 00:25:00* Test Item Value Reference Range Interpretation Comme nts Mean Platelet Volume (test c ode = 99313883) 9.2 [facility] CtrNeutrophils seg % faz8129-23-24 00:25:00* Test Item Value Reference Range Interpretation Comme nts Neutrophils (%) (Auto) (test code = 89866-9) 58.5 [facility] CtrAbsolute immature granulocyte nnqlc1887-27-34 00:25:00* Test Item Value Reference Range Interpretation Comme nts Absolute Immature Granulocyt e (auto (test code = 07344-3) 0.02 [facility] CtrBasophil % beavrj4625-62-86 00:25:00* Test Item Value Reference Range Interpretation Comme nts Basophils (%) (Auto) (test c ode = 35854-2) 0.6 [facility] CtrBlood band neutrophils count (number/volume) 2025-03-07 00:25:00* Test Item Value Reference Range Interpretation Comme nts Neutrophils # (Auto) (test c ode = 91192-7) 5.10 [facility] CtrAbsolute lymphocyte gavog0227-77-43 00:25:00* Test Item Value Reference Range Interpretation Comme nts Lymphocytes # (Auto) (test c ode = 65572-1) 2.87 [facility] CtrAbsolute basophil lmswr1624-80-91 00:25:00* Test Item Value Reference Range Interpretation Comme nts Basophils # (Auto) (test cod e = 45043985) 0.05 [facility] CtrAbsolute NRBC qsocr8982-05-49 00:25:00* Test Item Value Reference Range Interpretation Comme nts Nucleated Red Blood Cells # (test code = 847304496) 0 [facility] CtrHCG beta JQ4621-63-52 23:59:00* Test Item Value Reference Range Interpretation Comme nts Beta HCG, Quantitative (test code = OUP7163) < 0.1 [facility] CtrHCG beta VZ4477-38-58 23:59:00* Test Item Value Reference Range Interpretation Comme nts Beta HCG, Quantitative (test code = YND1813) < 0.1 [facility] CtrSpecific gravity of Urine by Automated test strip 2025-03-04 23:06:00* Test Item Value Reference Range Interpretation Comme nts Urine Specific [place] (test code = 61156-3) > 1.045 [facility] CtrRBC count ur xkec9320-61-00 23:05:00* Test Item Value Reference Range Interpretation Comme nts Urine RBC (test code = 798-9) 0-2 [facility] CtrUrine examination for white blood cells (WBC) 2025-03-04 23:05:00* Test Item Value Reference Range Interpretation Comme nts Urine WBC (test code = 307315086) 6-10 [facility] CtrAutomated epithelial cells count in urine sediment (number/area)2025-03-04 23:05:00* Test Item Value Reference Range Interpretation Comme nts Urine Epithelial Cells (test code = 38951-4) 6-10 [facility] CtrBacteria detection in urine sediment by light dnqypmiwqc4289-26-64 23:05:00* Test Item Value Reference Range Interpretation Comme nts Urine Bacteria (test code = 20314-0) Few [facility] CtrUrine casts detection by automated method 2025-03-04 23:05:00* Test Item Value Reference Range Interpretation Comme nts Urine Casts (test code = 94661-8) 0-2 [facility] CtrColor of Urine by Yucx2414-50-14 22:52:00* Test Item Value Reference Range Interpretation Comme nts Urine Color (test code = 44359-8) Yellow [facility] CtrAppearance of Gvghm9714-68-59 22:52:00* Test Item Value Reference Range Interpretation Comme nts Urine Appearance (test code = 5767-9) Clear [facility] CtrUrine glucose kvuqilxrh3210-64-68 22:52:00* Test Item Value Reference Range Interpretation Comme nts Urine Glucose (UA) (test cod e = 2349-9) Negative [facility] CtrBilirubin ed4720-82-43 22:52:00* Test Item Value Reference Range Interpretation Comme nts Urine Bilirubin (test code = 264451970) Negative [facility] CtrKetones az0400-88-83 22:52:00* Test Item Value Reference Range Interpretation Comme nts Urine Ketones (test code = 64555272) Negative [facility] CtrUrine blood rcxscuylx0562-76-06 22:52:00* Test Item Value Reference Range Interpretation Comme nts Urine Blood (test code = 953032-2) Negative [facility] CtrpH jp3990-76-88 22:52:00* Test Item Value Reference Range Interpretation Comme nts Urine pH (test code = 2756-5) 6.000 [facility] CtrProtein zp5449-62-24 22:52:00* Test Item Value Reference Range Interpretation Comme nts Urine Protein (test code = 03304415) Negative [facility] CtrUrobilinogen, urine, yg2500-31-69 22:52:00* Test Item Value Reference Range Interpretation Comme nts Urine Urobilinogen (test cod e = 841575593) 1.0 [facility] CtrUrine nitrate fdzeenttk5251-63-16 22:52:00* Test Item Value Reference Range Interpretation Comme nts Urine Nitrate (test code = 63588-1) Negative [facility] PasoUrine leukocyte esterase befbdhrvg1180-03-41 22:52:00* Test Item Value Reference Range Interpretation Comme nts Urine Leukocyte Esterase (te st code = 436636-6) Negative [facility] CtrSerum or plasma cardiac troponin I panel by high sensitivity rcezcx5032-07-60 22:37:00* Test Item Value Reference Range Interpretation Comme nts Troponin T High Sensitivity (test code = 29578-8) < 6.0 [facility] CtrSerum or plasma cardiac troponin I panel by high sensitivity omshxy9416-27-12 22:37:00* Test Item Value Reference Range Interpretation Comme nts Troponin T High Sensitivity (test code = 99370-6) < 6.0 [facility] CtrBilirubin spwxd4821-23-69 22:32:00* Test Item Value Reference Range Interpretation Comme nts Total Bilirubin (test code = QAI2086) 0.6 [facility] CtrSerum or plasma urea nitrogen measurement (mass/volume)2025-03-04 22:32:00* Test Item Value Reference Range Interpretation Comme nts Blood Urea Nitrogen (test co de = 3094-0) 10 [facility] ZdqZBX4239-71-85 22:32:00* Test Item Value Reference Range Interpretation Comme nts Aspartate Amino Transf (AST/ SGOT) (test code = RKH7331) 25 [facility] CtrCreatinine jxvmv7700-13-79 22:32:00* Test Item Value Reference Range Interpretation Comme nts Creatinine (test code = 485791221) 0.49 [facility] CtrEstimated glomerular filtration rate (GFR) bljenqlzqlwiy9936-31-07 22:32:00* Test Item Value Reference Range Interpretation Comme nts Glomerular Filtration Rate C alc (test code = 214397791) > 60.00 [facility] CtrBUN/creatinine plfku0591-94-65 22:32:00* Test Item Value Reference Range Interpretation Comme nts BUN/Creatinine Ratio (test c ode = 88995871) 20.4 [facility] PasoBody fluid potassium obxewkmaxbb1085-01-99 22:32:00* Test Item Value Reference Range Interpretation Comme nts Potassium Level (test code = 2821-7) 3.8 [facility] GpvJA25712-30-25 22:32:00* Test Item Value Reference Range Interpretation Comme nts Carbon Dioxide Level (test c ode = 08216779) 22 [facility] CtrAnion gap tdrmpgwahwu5798-38-19 22:32:00* Test Item Value Reference Range Interpretation Comme nts Anion Gap (test code = 75120776) 17.8 [facility] CtrCalcium stcfr2011-40-78 22:32:00* Test Item Value Reference Range Interpretation Comme nts Calcium Level (test code = 52374458) 9.3 [facility] CtrGlobulin xyv3985-60-61 22:32:00* Test Item Value Reference Range Interpretation Comme nts Globulin (test code = 108022358) 3.1 [facility] CtrALT (SGPT) ser/vioe5294-19-16 22:32:00* Test Item Value Reference Range Interpretation Comme nts Alanine Aminotransferase (AL T/SGPT) (test code = 1742-6) 19 [facility] RvcUzaycl3076-74-45 22:32:00* Test Item Value Reference Range Interpretation Comme nts Lipase (test code = 703493156) 51 [facility] CtrALP ser/hwfc2529-04-91 22:32:00* Test Item Value Reference Range Interpretation Comme nts Total Alkaline Phosphatase ( test code = 6768-6) 84 [facility] CtrAbsolute eosinophil xabri5954-96-22 22:16:00* Test Item Value Reference Range Interpretation Comme nts Eosinophils # (Auto) (test c ode = BNZ6203) 0.15 [facility] CtrRBC orues9083-09-15 22:16:00* Test Item Value Reference Range Interpretation Comme [facility] Red Blood Count (test code = 91267945) 4.84 [facility] JwcHjccdjxaqb4720-95-15 22:16:00* Test Item Value Reference Range Interpretation Comme [facility] Hematocrit (test code = 07947291) 44.9 [facility] CtrMCV (mean corpuscular volume) determination 2025-03-04 22:16:00* Test Item Value Reference Range Interpretation Comme [facility] Mean Corpuscular Volume (ari t code = 44011-4) 92.8 [facility] CtrMean corpuscular hemoglobin (MCH) determination 2025-03-04 22:16:00* Test Item Value Reference Range Interpretation Comme [facility] Mean Corpuscular Hemoglobin (test code = 54993311) 32.6 [facility] CtrMean corpuscular hemoglobin concentration (MCHC) bxoczrukdxoxt8999-11-39 22:16:00* Test Item Value Reference Range Interpretation Comme [facility] Mean Corpuscular Hemoglobin Concent (test code = 90916432) 35.2 [facility] CtrErythrocyte distribution width coefficient of liwzbmfgw9120-69-81 22:16:00* Test Item Value Reference Range Interpretation Comme [facility] Red Cell Distribution Width (test code = 60758544) 13.7 [facility] CtrPlatelet tlwdq4630-82-75 22:16:00* Test Item Value Reference Range Interpretation Comme [facility] Platelet Count (test code = 20963691) 317 [facility] CtrMean platelet iqyhes2580-96-65 22:16:00* Test Item Value Reference Range Interpretation Comme nts Mean Platelet Volume (test c ode = 01390521) 9.4 [facility] CtrNeutrophils seg % mcz0313-90-59 22:16:00* Test Item Value Reference Range Interpretation Comme nts Neutrophils (%) (Auto) (test code = 79703-8) 60.7 [facility] CtrAbsolute immature granulocyte ikekf7296-94-28 22:16:00* Test Item Value Reference Range Interpretation Comme nts Absolute Immature Granulocyt e (auto (test code = 03544-6) 0.03 [facility] CtrBasophil % gcxpmi4609-97-63 22:16:00* Test Item Value Reference Range Interpretation Comme nts Basophils (%) (Auto) (test c ode = 96693-9) 0.3 [facility] CtrBlood band neutrophils count (number/volume) 2025-03-04 22:16:00* Test Item Value Reference Range Interpretation Comme nts Neutrophils # (Auto) (test c ode = 22776-4) 5.78 [facility] CtrAbsolute lymphocyte uhwoj7675-59-60 22:16:00* Test Item Value Reference Range Interpretation Comme nts Lymphocytes # (Auto) (test c ode = 74439-0) 2.94 [facility] CtrAbsolute basophil mhcky5263-02-80 22:16:00* Test Item Value Reference Range Interpretation Comme [facility] Basophils # (Auto) (test cod e = 63672852) 0.03 [facility] CtrAbsolute NRBC ofrlf8754-62-39 22:16:00* Test Item Value Reference Range Interpretation Comme [facility] Nucleated Red Blood Cells # (test code = 803067009) 0 [facility] Ctrurinalysis, xootplyi3261-03-07 09:53:23* Test Item Value Reference Range Interpretation Comme nts Leukocytes (test code = Leukocytes) +- Nitrite (test code = Nitrite) - Urobilinogen (test code = Urobilinogen) - Protein (test code = Protein) 1+ pH (test code = pH) 6.0 Blood (test code = Blood) - Specific [place] (test code = Specific [place]) 1.020 Ketone (test code = Ketone) 1+ Bilirubin (test code = Bilirubin) - Glucose (test code = Glucose) - Appearance (test code = Appearance) clear Color (test code = Color) yellow [facility] Programpregnancy test, nhpyi8798-30-13 11:42:42* Test Item Value Reference Range Interpretation Comme nts HCG (test code = HCG) negative [facility], snqyb0240-30-09 10:28:32* Test Item Value Reference Range Interpretation Comme nts HCG (test code = HCG) negative [facility] MedicalFollitropin [Units/volume] in Serum or Utbeng4500-43-16 00:00:00* Test Item Value Reference Range Interpretation Comme nts FSH (test code = FSH) 72.2 mIU/mL [facility] MedicalEstradiol (E2) [Mass/volume] in Serum or Bvlccb1473-11-76 00:00:00 * Test Item Value Reference Range Interpretation Comme nts estradiol (test code = estradiol) 9.5 pg/mL 6.1-91.9 [facility] MedicalTestosterone free and total panel [Mass/volume] - Serum or Plasma 2024-05-05 00:00:00* Test Item Value Reference Range Interpretation Comme nts free testosterone (test code = free testosterone) 0.06 NG/dL 0.12-0.64 L sex hormone binding globulin (test code = sex hormone binding globulin) 38.50 nmol/L 10.00-57.00 testosterone (test code = testosterone) 3.8 NG/dL 8.4-48.[address] [facility] MedicalCervical AndOr vaginal cytology qdpgw9595-95-15 00:00:00* Test Item Value Reference Range Interpretation Comme nts diagnosis: (test code = diagnosis:) COMMENT specimen adequacy: (test cod e = specimen adequacy:) COMMENT performed by: (test code = p erformed by:) COMMENT note: (test code = note:) COMMENT test methodology: (test code = test methodology:) COMMENT HPV aptima (test code = HPV aptima) NEGATIVE negative [facility] MedicalRBC count ur wwvc4433-16-13 12:39:00* Test Item Value Reference Range Interpretation Comme nts Urine RBC (test code = 798-9) 0-2 [facility] CtrUrine examination for white blood cells (WBC) 2024-03-29 12:39:00* Test Item Value Reference Range Interpretation Comme nts Urine WBC (test code = 719052183) 0-2 [facility] CtrAutomated epithelial cells count in urine sediment (number/area)2024-03-29 12:39:00* Test Item Value Reference Range Interpretation Comme nts Urine Epithelial Cells (test code = 65563-1) 6-10 [facility] CtrBacteria detection in urine sediment by light aogqxnbjjn4601-14-87 12:39:00* Test Item Value Reference Range Interpretation Comme nts Urine Bacteria (test code = 82677-9) [facility] PasoUrine casts detection by automated method 2024-03-29 12:39:00* Test Item Value Reference Range Interpretation Comme nts Urine Casts (test code = 51062-0) 0-2 [facility] CtrColor of Urine by Vuns1700-43-13 12:36:00* Test Item Value Reference Range Interpretation Comme nts Urine Color (test code = 78836-7) Yellow [facility] CtrAppearance of Zfzjf7670-61-22 12:36:00* Test Item Value Reference Range Interpretation Comme nts Urine Appearance (test code = 5767-9) Clear [facility] CtrUrine glucose bhcfhwboy2082-23-90 12:36:00* Test Item Value Reference Range Interpretation Comme nts Urine Glucose (UA) (test cod e = 2349-9) Negative [facility] CtrBilirubin jd5206-03-37 12:36:00* Test Item Value Reference Range Interpretation Comme nts Urine Bilirubin (test code = 582519469) Negative [facility] CtrKetones nj1092-26-56 12:36:00* Test Item Value Reference Range Interpretation Comme nts Urine Ketones (test code = 83512988) Negative [facility] CtrSpecific gravity of Urine by Automated test strip 2024-03-29 12:36:00* Test Item Value Reference Range Interpretation Comme nts Urine Specific [place] (test code = 33413-5) 1.019 [facility] CtrUrine blood oibzvjztz2079-15-81 12:36:00* Test Item Value Reference Range Interpretation Comme nts Urine Blood (test code = 43103-6) 3+ (LARGE) [facility] CtrpH xw5238-06-55 12:36:00* Test Item Value Reference Range Interpretation Comme nts Urine pH (test code = 2756-5) 6.000 [facility] CtrProtein jo8766-27-27 12:36:00* Test Item Value Reference Range Interpretation Comme nts Urine Protein (test code = 82274033) Negative [facility] CtrUrobilinogen, urine, hz5428-96-97 12:36:00* Test Item Value Reference Range Interpretation Comme nts Urine Urobilinogen (test cod e = 753367106) 1.0 [facility] CtrUrine nitrate vfiwnlprm4626-49-33 12:36:00* Test Item Value Reference Range Interpretation Comme nts Urine Nitrate (test code = 90080-5) Negative [facility] PasoUrine leukocyte esterase midszadbb4752-78-35 12:36:00* Test Item Value Reference Range Interpretation Comme nts Urine Leukocyte Esterase (te st code = 142571773) Negative [facility] CtrSerum or plasma creatine kinase MB (CK-MB) measurement by immunoassay (mass/volume)2024-03-29 11:12:00* Test Item Value Reference Range Interpretation Comme nts Creatine Kinase MB (test cod e = 14335-7) < 1.0 [facility] CtrSerum or plasma cardiac troponin I panel by high sensitivity xugmpv1690-80-87 11:12:00* Test Item Value Reference Range Interpretation Comme nts Troponin T High Sensitivity (test code = 01781-2) 7.5 [facility] CtrBilirubin jwebj8852-41-50 11:10:00* Test Item Value Reference Range Interpretation Comme nts Total Bilirubin (test code = LTW5243) 0.4 [facility] VmkUEJ8642-64-08 11:10:00* Test Item Value Reference Range Interpretation Comme nts Aspartate Amino Transf (AST/ SGOT) (test code = UKN9245) 28 [facility] CtrALT (SGPT) ser/ysra4010-00-97 11:10:00* Test Item Value Reference Range Interpretation Comme nts Alanine Aminotransferase (AL T/SGPT) (test code = 1742-6) 23 [facility] CtrNT-proBNP aohhcgugoug8455-90-46 11:10:00* Test Item Value Reference Range Interpretation Comme nts CY-Bbe-E-Type Natriuretic Pe ptide (test code = 568178908) 243 [facility] CtrALP ser/evhw7620-55-37 11:10:00* Test Item Value Reference Range Interpretation Comme nts Total Alkaline Phosphatase ( test code = 6768-6) 82 [facility] CtrCreatine kinase jsvlcwrwnco4129-91-35 11:10:00* Test Item Value Reference Range Interpretation Comme nts Creatine Kinase (test code = 395799581) 85 [facility] CtrSerum or plasma glucose measurement (mass/volume) 2024-03-29 11:09:00* Test Item Value Reference Range Interpretation Comme nts Random Glucose (test code = 2345-7) 118 [facility] CtrSerum or plasma urea nitrogen measurement (mass/volume)2024-03-29 11:09:00* Test Item Value Reference Range Interpretation Comme nts Blood Urea Nitrogen (test co de = 3094-0) 7 [facility] CtrAlbumin-globulin ratio dty2704-79-17 11:09:00* Test Item Value Reference Range Interpretation Comme [facility] Albumin/Globulin Ratio (test code = PDK0038) 1.3 [facility] CtrTotal ztfaeis2805-23-87 11:09:00* Test Item Value Reference Range Interpretation Comme nts Total Protein (test code = VRG5196) 7.5 [facility] CtrEstimated glomerular filtration rate (GFR) wvpbexlcmajay6697-93-80 11:09:00* Test Item Value Reference Range Interpretation Comme nts Glomerular Filtration Rate C alc (test code = 200309184) > 60.00 [facility] CtrBUN/creatinine zefeu3567-33-31 11:09:00* Test Item Value Reference Range Interpretation Comme [facility] BUN/Creatinine Ratio (test c ode = 90467605) 11.9 [facility] CszXV51495-93-33 11:09:00* Test Item Value Reference Range Interpretation Comme [facility] Carbon Dioxide Level (test c ode = 03665131) 21 [facility] CtrAnion gap izcwflpxwza8470-65-65 11:09:00* Test Item Value Reference Range Interpretation Comme nts Anion Gap (test code = 90151321) 18.0 [facility] CtrCalcium stekj2525-40-79 11:09:00* Test Item Value Reference Range Interpretation Comme nts Calcium Level (test code = 95489931) 9.3 [facility] CtrGlobulin dex1911-70-94 11:09:00* Test Item Value Reference Range Interpretation Comme [facility] Globulin (test code = 546537201) 3.2 [facility] PasoSerum beta human chorionic gonadotropic (BhCG) ogsjgwfbh6661-07-02 11:05:00* Test Item Value Reference Range Interpretation Comme [facility] Serum Test, Qualit ative (test code = 2110-5) NEGATIVE [facility] CtrVenous blood pH aqgpphgloth9111-54-41 10:51:00* Test Item Value Reference Range Interpretation Comme [facility] Venous Blood pH (test code = 2746-6) 7.407 [facility] CtrPCO2 kgvfwg8514-02-93 10:51:00* Test Item Value Reference Range Interpretation Comme [facility] Venous Blood pCO2 at Patient Temp (test code = 2021-4) 38 [facility] CtrPO2 mihtby1468-69-13 10:51:00* Test Item Value Reference Range Interpretation Comme [facility] Venous Blood Partial Pressur e O2 (test code = 2705-2) 39 [facility] CtrVenous blood bicarbonate iqydhfipyaf9268-71-92 10:51:00* Test Item Value Reference Range Interpretation Comme [facility] Venous Blood HCO3 (test code = 865668706) 23.9 [facility] CtrVenous blood base excess determination by owifzfgzpyy7898-41-95 10:51:00* Test Item Value Reference Range Interpretation Comme [facility] Venous Blood Base Excess (te st code = 1927-3) -0.8 [facility] PasoBlood venous total XF21783-99-97 10:51:00* Test Item Value Reference Range Interpretation Comme [facility] Venous Blood Total Carbon Di oxide (test code = 2027-1) 25.1 [facility] CtrCalculated venous blood oxygen saturation dfymgtsooud9120-58-02 10:51:00* Test Item Value Reference Range Interpretation Comme [facility] Venous Blood O2 Saturation ( Calc) (test code = 970480198) 61 [facility] CtrVenous blood oxygen umprzza5675-20-06 10:51:00* Test Item Value Reference Range Interpretation Comme [facility] Venous Blood Oxygen Content (test code = 55952-1) 5.6 [facility] CtrAbsolute eosinophil mtata1881-62-68 10:49:00* Test Item Value Reference Range Interpretation Comme [facility] Eosinophils # (Auto) (test c ode = UYF1804) 0.06 [facility] CtrRBC bsooi0160-42-31 10:49:00* Test Item Value Reference Range Interpretation Comme [facility] Red Blood Count (test code = 09261626) 4.79 [facility] PapUztfgobljd0082-52-75 10:49:00* Test Item Value Reference Range Interpretation Comme [facility] Hematocrit (test code = 45481136) 43.0 [facility] CtrMCV (mean corpuscular volume) determination 2024-03-29 10:49:00* Test Item Value Reference Range Interpretation Comme [facility] Mean Corpuscular Volume (ari t code = 45269-3) 89.8 [facility] CtrMean corpuscular hemoglobin (MCH) determination 2024-03-29 10:49:00* Test Item Value Reference Range Interpretation Comme [facility] Mean Corpuscular Hemoglobin (test code = 37389964) 29.9 [facility] CtrMean corpuscular hemoglobin concentration (MCHC) kzpioihoojdim4417-33-59 10:49:00* Test Item Value Reference Range Interpretation Comme [facility] Mean Corpuscular Hemoglobin Concent (test code = 45896365) 33.3 [facility] CtrRBC distribution width coefficient of variation 2024-03-29 10:49:00* Test Item Value Reference Range Interpretation Comme [facility] Red Cell Distribution Width (test code = 49244889) 13.2 [facility] CtrPlatelet gbqpc9002-34-41 10:49:00* Test Item Value Reference Range Interpretation Comme [facility] Platelet Count (test code = 11841232) 246 [facility] CtrMean platelet dytydz1219-98-41 10:49:00* Test Item Value Reference Range Interpretation Comme nts Mean Platelet Volume (test c ode = 54192602) 9.2 [facility] CtrNeutrophils seg % fxr7297-01-00 10:49:00* Test Item Value Reference Range Interpretation Comme nts Neutrophils (%) (Auto) (test code = 02919-3) 82.4 [facility] CtrAbsolute immature granulocyte wwcmt2726-32-34 10:49:00* Test Item Value Reference Range Interpretation Comme nts Absolute Immature Granulocyt e (auto (test code = 21453-0) 0.03 [facility] CtrBlood band neutrophils count (number/volume) 2024-03-29 10:49:00* Test Item Value Reference Range Interpretation Comme nts Neutrophils # (Auto) (test c ode = 97462-3) 6.05 [facility] [id number] 10:49:00* Test Item Value Reference Range Interpretation Comme nts Lymphocytes # (Auto) (test c ode = 50566-6) 0.42 [facility] basophil [id number] 10:49:00* Test Item Value Reference Range Interpretation Comme [facility] Basophils # (Auto) (test cod e = [id number]) 0.02 [facility] NR[facility] [id number] 10:49:00* Test Item Value Reference Range Interpretation Comme nts Nucleated Red Blood Cells # (test code = 089474825) 0 [facility] [id number] 08:00:00Results [facility] metabolic 2000 panel - Serum or [id number] 10:50:00* Test Item Value Reference Range Interpretation Comme nts glucose (test code = glucose) 117 mg/dL 74-106 H Urea nitrogen [Mass/volume] in Serum or Plasma (test code = 3094-0) 9 mg/dL 6-20 osmolality calculated,serum (test code = osmolality calculated,serum) 281 mOsm/kg 280-300 creatinine (test code = creatinine) 0.5 mg/dL 0.50-0.90 glomerular filtration rate ( test code = glomerular filtration rate) >60.00 Urea nitrogen/Creatinine [Ma ss Ratio] in Serum or Plasma (test code = 3097-3) 18.0 12-20 sodium level (test code = so dium level) 141 mmol/L 135-145 Potassium [Moles/volume] in Body fluid (test code = 2821-7) 4.2 mmol/L 3.5-5.2 chloride level (test code = chloride level) 105 mmol/L 98-108 CO2 (test code = CO2) 26 mmol/L 21-32 anion gap (test code = anion gap) 14.2 mEq/L 12-20 calcium level (test code = calcium level) 9.2 mg/dL 8.6-10.0 [facility] - Serum or [id number] 10:50:00* Test Item Value Reference Range Interpretation Comme nts total protein (test code = t otal protein) 7.4 g/dL 6.6-8.7 albumin (test code = albumin) 4.5 g/dL 3.5-5.2 bilirubin,total (test code = bilirubin,total) 0.4 mg/dL 0.0-1.2 Bilirubin.direct [Mass/volum e] in Serum or Plasma (test code = 1968-7) <0.20 0.0-0.3 AST/SGOT (test code = AST/SGOT) 20 U/L 15-32 Alanine aminotransferase [En zymatic activity/volume] in Serum or Plasma (test code = 1742-6) 11 U/L 0-33 Alkaline phosphatase [Enzyma tic activity/volume] in Serum or Plasma (test code = 6768-6) 77 U/L 35-105 [id number] 10:50:00* Test Item Value Reference Range Interpretation Comme nts prothrombin time (test code = prothrombin time) 10.3 seconds 10.3-12.3 INR in Blood by Coagulation assay (test code = 54369-9) 0.95 [facility] [id number] 10:50:00* Test Item Value Reference Range Interpretation Comme [facility] INR in Blood by Coagulation assay (test code = 16871-4) 29.9 seconds 22.5-37.0 [facility] [id number] 06:22:00* Test Item Value Reference Range Interpretation Comme [facility] Surgical pathology study (test code = 90196-8) see separate pathology report. [facility] Notes <thead> Date/Time Note Provider Source [facility] [id number] 01:32:00 Follow-up with your CORPORATE INVESTIGATOR f or further evaluation and treatment will specifically pelvic ultrasound. Return to ER for worsening symptoms or any concerns Future Tests Future scheduled test information is unavailable Pending Tests Pending diagnostic test information is unavailable Future Visits Future appointment information is unavailable Referrals to Other Providers <thead> Reason for Referral Referral Start Date Provider Provider Contact Information Provider Address BOONE LINARES Work Phone: [place] [address] BOONE LINARES Work Phone: [place] [address] DENG LOONEY Work Phone: [phone] [address] TWIN YANEZ NP Work Phone : [phone] [address] TWIN YANEZ TANK CLEANER Work Phone : [phone] [address] TWIN YANEZ , TANK CLEANER Work Phone : [phone] [address] TWIN YANEZ TANK CLEANER Work Phone : [phone] [address] TWIN YANEZ , TANK CLEANER Work Phone : [phone] [address] TWIN YANEZ TANK CLEANER Work Phone : [phone] [address] TWIN YANEZ NP Work Phone : [phone] [facility] [address] BOONE LINARES Work Phone: [facility] [address] [place], [place] [id number] BOONE LINARES Work Phone: [facility] [address] [place], [place] [id number] BOONE LINARES Work Phone: [facility] [address] [place] [id number] BOONE LINARES Work Phone: [facility] [address] [place] [id number] BOONE LINARES Work Phone: [facility] [address] [place], [place] [id number] MT MCELROY MD Work Phone: [phone] [facility] [address] MT MCELROY MD Work Phone: [phone] [facility] [address] MT MCELROY MD Work Phone: [phone] [facility] [address] NO PHYSICIAN JOSÉ MIGUEL RWIGHT Work Phone: [phone] [facility] [address] [place] [phone] CHANTE ARAGON MD Work Phone: [address] [facility] [address] CHANTE ARAGON MD Work Phone: [address] [facility] [address] Future Procedures <thead> Procedure Name Ordered Date Scheduled Date Pulse Oximetry, Monitor March 29, 2024 10: 36am March 29, 2024 10:33am Titrate O2 for Sat > 92% March 29, 2024 10 :36am March 29, 2024 10:33am Cardiac, BP, Pulse Ox Monitor March 29 10:36am March 29, 2024 10:33am Remove Clothing/Place in Gown March 29 10:36am March 29, 2024 10:33am Electrocardiogram, Complete March 29, 2024 10:36am March 29, 2024 10:33am RT: Aerosol Treatment March 29, 2024 10:36 am March 29, 2024 10:33am INITIAL RESPIRATORY TREATMENT March 29 10:36am March 29, 2024 10:33am Insert Peripheral IV Access March 29, 2024 10:36am March 29, 2024 NPO except Meds March 04, 2025 9:57pm Septe 2024 9:56pm Insert Peripheral IV Access March 04, 2025 9:57pm March 04, 2025 9:56pm Cardiac, BP, Pulse Ox Monitor March 04 9:57pm March 04, 2025 9:56pm Remove Clothing/Place in Gown March 04 9:57pm March 04, 2025 9:56pm VS - Adult March 04, 2025 9:57pm Septe [email or web address] 9:56pm Electrocardiogram, Complete March 04, 2025 9:57pm March 04, 2025 9:56pm NPO except Meds March 07, 2025 12:01am Sept [email or web address] 12:00am Insert Peripheral IV Access March 07, 2025 12:01am March 07, 2025 12:00am Remove Clothing/Place in Gown March 07 12:01am March 07, 2025 12:00am VS - Adult March 07, 2025 12:01am [facility]2024 12:00am Future Medications Future medication information is unavailable Patient Instructions <tbody> Viral Gastroenteritis, Adult Fever, Adult Cough, Adult Acute Bronchitis, Adult Nonspecific Chest Pain, Adul t Sinus Tachycardia Muscle Strain, Wtml-kn-Kztr Constipation, Adult, Easy-to -Read Ankle Sprain, Amrq-bu-Xbsq Urinary Tract Infection, Jv lt, Aibc-xa-Rflt Viral Respiratory Infection, Essh-Lw-Pklq COVID-19 Influenza, Adult, Easy-to-Re ad Viral Respiratory Infection, Qhjc-Xz-Ysux Abdominal Pain, Adult, Easy- to-Read Pelvic Pain, Female, Easy-to -Read Influenza, Adult, Easy-to-Re ad Viral Respiratory Infection, Eryc-Ty-Lxyt Dehydration, Adult, Easy-to- Read Acute Bronchitis, Adult, Eas y-to-Read Nausea, Adult Upper Respiratory Infection, Adult Metoprolol Tablets Cefdinir Capsules Viral Respiratory Infection, Pyrg-Zz-Jryk Sinus Tachycardia Azithromycin tablets Levofloxacin tablets Codeine; Promethazine oral s olution Community-Acquired Pneumonia , Adult, Tuyd-vz-Eviu Cerebral Hypoxia, Adult Viral Gastroenteritis, Adult , Fcot-iy-Ewyk Diarrhea, Adult, Easy-to-[place] d Acute Bronchitis, Adult, Eas y-to-Read [facility] [id number] 00:24:40 Patient Care Team <thead> Team Status: Active Member Role Status Dates TWIN HANNAH, TANK CLEANER primary care physician Active CHRISTIAN STONE MD Emergency Provider Active EMERSON TORRES Next of Kin Active MAYDA BAKER Emergency Contact Active LON BAKER Guarantor Active [facility] [id number] 00:24:40 Follow-up with your CORPORATE INVESTIGATOR f or further evaluation and treatment will specifically pelvic ultrasound. Return to ER for worsening symptoms or any concerns Future Tests Future scheduled test information is unavailable Pending Tests Pending diagnostic test information is unavailable Future Visits Future appointment information is unavailable Referrals to Other Providers <thead> Reason for Referral Referral Start Date Provider Provider Contact Information Provider Address BOONE LINARES Work Phone: [place] [address] BOONE LINARES Work Phone: [place] [address] DENG LOONEY Work Phone: [phone] [phone] TWIN YANEZ NP Work Phone : [phone] [phone] TWIN YANEZ NP Work Phone : [address] [place] [phone] TWIN YANEZ NP Work Phone : [phone] [place] [phone] TWIN YANEZ NP Work Phone : [phone] [place] [phone] TWIN H BEAU , TANK CLEANER Work Phone : [phone] [facility] [address] TWIN H BEAU TANK CLEANER Work Phone : [phone] [facility] [address] BOONE LINARES Work Phone: [facility] [address] [place], [place] [id number] JW JURADO PA Work Phone: [facility] [address] [place], [place] [id number] BOONE LINARES Work Phone: [facility] [address] [place] [id number] JW JURADO PA Work Phone: [facility] [address] [place] [id number] JW JURADO PA Work Phone: [facility] [address] [place] [id number] MT MCELROY MD Work Phone: [phone] [facility] [address] MT MCELROY MD Work Phone: [phone] [facility] [address] MT MCELROY MD Work Phone: [phone] [address] [facility] [address] NO PHYSICIAN JOSÉ MIGUEL WRIGHT Work Phone: [phone] [facility] [address] [place] [phone] CHANTE ARAGON MD Work Phone: [address] [facility] [address] CHANTE ARAGON MD Work Phone: [address] [facility] [address] Future Procedures <thead> Procedure Name Ordered Date Scheduled Date Pulse Oximetry, Monitor March 29, 2024 10: 36am March 29, 2024 10:33am Titrate O2 for Sat > 92% March 29, 2024 10 :36am March 29, 2024 10:33am Cardiac, BP, Pulse Ox Monitor March 29 10:36am March 29, 2024 10:33am Remove Clothing/Place in Gown March 29 10:36am March 29, 2024 10:33am Electrocardiogram, Complete March 29, 2024 10:36am March 29, 2024 10:33am RT: Aerosol Treatment March 29, 2024 10:36 am March 29, 2024 10:33am INITIAL RESPIRATORY TREATMENT March 29 10:36am March 29, 2024 10:33am Insert Peripheral IV Access March 29, 2024 10:36am March 29, 2024 NPO except Meds March 04, 2025 9:57pm Septe [facility] 2024 9:56pm Insert Peripheral IV Access March 04, 2025 9:57pm March 04, 2025 9:56pm CHEST 1 VIEW March 04, 2025 9:[facility] 9:56pm EKG,INITIAL March 04, 2025 9:57pm [facility] 20[facility] 9:56pm Cardiac, BP, Pulse Ox Monitor March 04 9:57pm March 04, 2025 9:56pm Remove Clothing/Place in Gown March 04 9:57pm March 04, 2025 9:56pm VS - Adult March 04, 2025 9:[facility]56[facility] Electrocardiogram, Complete March 04, 2025 9:57pm March 04, 2025 9:56pm CT ABD & PELVIS W March 04, 2025 9:57pm Sep tem2024 9:56pm Future Medications Future medication information is unavailable Patient Instructions <tbody> Viral Gastroenteritis, Adult Fever, Adult Cough, Adult Acute Bronchitis, Adult Nonspecific Chest Pain, Adul t Sinus Tachycardia Muscle Strain, Vchf-wc-Eyiv Constipation, Adult, Easy-to -Read Ankle Sprain, Mtbh-ky-Vcxp Urinary Tract Infection, Jv lt, Yttf-kp-Olol Viral Respiratory Infection, Isfv-Rk-Qvdr COVID-19 Influenza, Adult, Easy-to-Re ad Viral Respiratory Infection, Rkvd-Ue-Gcml Abdominal Pain, Adult, Easy- to-Read Influenza, Adult, Easy-to-Re ad Viral Respiratory Infection, Amfh-Ap-Cqit Dehydration, Adult, Easy-to- Read Acute Bronchitis, Adult, Eas y-to-Read Nausea, Adult Upper Respiratory Infection, Adult Metoprolol Tablets Cefdinir Capsules Viral Respiratory Infection, Eifq-Te-Jfbh Sinus Tachycardia Azithromycin tablets Levofloxacin tablets Codeine; Promethazine oral s olution Community-Acquired Pneumonia , Adult, Wzph-oe-Wtvq Cerebral Hypoxia, Adult Viral Gastroenteritis, Adult , Caor-uz-Idcy Diarrhea, Adult, Easy-to-[place] d Acute Bronchitis, Adult, Eas y-to-Read [facility] [id number] 04:19:50 Patient Care Team <thead> Team Status: Active Member Role Status Dates TWIN FOXC, TANK CLEANER primary care physician Active DENNIS ROSADO MD Emergency Provider Active EMERSON TORRES Next of Kin Active MAYDA BAKER Emergency Contact Active LON BAKER Guarantor Active [facility] [id number] 04:19:50 Thank you for choosing us for your medical care and it was a pleasure taking care of you. Your provider s name is nurse practitioner Rashel Cabral DNP, SYSTEMS SOFTWARE SPECIALIST-BC. Follow up with your primary care provider in the next week. Please return to the emergency department if your symptoms worsen and or any other emergency concerns INSTRUCTIONS: Increase your water intake and use Tylenol and Ibuprofen for pain and fever, unless instructed otherwise. If you have kidney disease avoid NSAID s like Ibuprofen (Motrin, Advil) and Naproxen (Aleve). I recommend you take immune support vitamins like Zinc, vitamin C, and Elderberry. May use Robitussin and congestion medication from over the counter as needed. If you have high blood pressure or diabetes, please be aware that some of the medications raise your blood pressure and sugar. Avoid others if you have the flu, covid, or RSV, until all symptoms have resolved for at least 24 hours. May return to school or work after you have no symptoms for 48 hours. May use Robitussin and congestion medication from over the counter as needed. If you have high blood pressure or diabetes, please be aware that some of the medications raise your blood pressure and sugar. Future Tests Future scheduled test information is unavailable Pending Tests Pending diagnostic test information is unavailable Future Visits Future appointment information is unavailable Referrals to Other Providers <thead> Reason for Referral Referral Start Date Provider Provider Contact Information Provider Address BOONE LINARES Work Phone: [facility] [address] [place], [place] [id number] BOONE LINARES Work Phone: [facility] [address] [place], [place] [id number] DENG Kellie SINHAP-C AURE Work Phone: [phone] [facility] [address] TWIN H BEAU , TANK CLEANER Work Phone : [phone] [facility] [address] TWIN H BEAU , TANK CLEANER Work Phone : [address] [facility] [address] TWIN H BEAU , TANK CLEANER Work Phone : [address] [facility] [address] TWIN H BEAU , TANK CLEANER Work Phone : [address] [facility] [address] TWIN H BEAU , TANK CLEANER Work Phone : [address] [facility] [address] BOONE LINARES Work Phone: [place] [phone] BOONE LINARES Work Phone: [facility] [address] [place] [id number] BOONE LINARES Work Phone: [facility] [address] [place] [id number] BOONE LINARES Work Phone: [facility] [address] [place] [id number] BOONE LINARES Work Phone: [place] [phone] MT MCELROY MD Work Phone: [phone] [facility] [address] MT MCELROY MD Work Phone: [phone] [place] [address] MT MCELROY MD Work Phone: [phone] [place] [address] NO PHYSICIAN JOSÉ MIGUEL WRIGHT Work Phone: [phone] [facility] [address] [facility] [address] CHANTE ARAGON MD Work Phone: [address] [facility] [address] CHANTE ARAGON MD Work Phone: [phone] [facility] [address] Future Procedures <thead> Procedure Name Ordered Date Scheduled Date Insert Peripheral IV Access June 27, 2023 8:43pm June 27, 2023 Pulse Oximetry, Monitor March 29, 2024 10: 36am March 29, 2024 10:33am Titrate O2 for Sat > 92% March 29, 2024 10 :36am March 29, 2024 10:33am Cardiac, BP, Pulse Ox Monitor March 29 10:36am March 29, 2024 10:33am Remove Clothing/Place in Gown March 29 10:36am March 29, 2024 10:33am Electrocardiogram, Complete March 29, 2024 10:36am March 29, 2024 10:33am RT: Aerosol Treatment March 29, 2024 10:36 am March 29, 2024 10:33am INITIAL RESPIRATORY TREATMENT March 29 10:36am March 29, 2024 10:33am Insert Peripheral IV Access March 29, 2024 10:36am March 29, 2024 Future Medications Future medication information is unavailable Patient Instructions <tbody> Viral Gastroenteritis, Adult Fever, Adult Cough, Adult Acute Bronchitis, Adult Nonspecific Chest Pain, Adul t Sinus Tachycardia Muscle Strain, Qqms-ut-Lpxc Constipation, Adult, Easy-to -Read Ankle Sprain, Ppet-aj-Mibh Urinary Tract Infection, Jv lt, Kplu-qi-Poty Viral Respiratory Infection, Bgam-Tr-Prix COVID-19 Influenza, Adult, Easy-to-Re ad Viral Respiratory Infection, Kyfh-Ug-Enqq Influenza, Adult, Easy-to-Re ad Viral Respiratory Infection, Xrjt-Yn-Ratt Dehydration, Adult, Easy-to- Read Acute Bronchitis, Adult, Eas y-to-Read Nausea, Adult Upper Respiratory Infection, Adult Metoprolol Tablets Cefdinir Capsules Viral Respiratory Infection, Hbhe-If-Fzll Sinus Tachycardia Azithromycin tablets Levofloxacin tablets Codeine; Promethazine oral s olution Community-Acquired Pneumonia , Adult, Zlde-wl-Dhda Cerebral Hypoxia, Adult Viral Gastroenteritis, Adult , Niqo-qh-Zaia Diarrhea, Adult, Easy-to-Dina d Acute Bronchitis, Adult, Eas y-to-Read [facility]
[2025-03-28] MEDS ORDERED: ONDANSETRON 4 MG/2 ML VIAL ONE (23:19)
[2025-03-28] MEDS ORDERED: NA CHLORIDE 0.9% 1,000 ML ONE (23:21)
[2025-03-28] MEDS ORDERED: MORPHINE 4 MG/ML SYR ONE (23:21)
[2025-03-28 23:38] LABS: Absolute Lymphocytes (CBC) 2.9 K/uL (0.7-4.9); Hematocrit 45.2 % (36.0-45.0); Hemoglobin 15.6 g/dL (12.0-15.0); MCH 32.3 pg (27.0-35.0); MCHC 34.4 g/dL (32.0-36.0); MCV 94.0 fL (80-100); MPV 7.8 fL (7.6-11.3); Nucleated RBC Absolute Count 0.0 (0-0); Nucleated Red Blood Cells % 0.0 % (0-0); RBC Red Blood Cell Count 4.81 M/uL (3.86-4.86); White Blood Count 10.10 thou/uL (4.3-10.9)
[2025-03-28 23:47] LABS: Sqamous Epithelial <5 /HPF (None Seen); Urine Culture Reflex Order NOT NEEDED; Urine Microscopic Reflex YN ORDER UMIC; Urine WBC Clump Rare /HPF (None Seen); Urine Yeast (Budding) Trace /HPF (None Seen)
[2025-03-29] LABS: ALT/SGPT 22.0 U/L (13-56); AST/SGOT 17.0 U/L (15-37); Albumin 3.9 g/dL (3.4-5.0); Albumin/Globulin Ratio 1.0 (1.1-1.8); Alkaline Phosphatase 79.0 U/L (45-117); Anion Gap 10.3 mEq/L (5.0-15.0); BUN Blood Urea Nitrogen 12.0 mg/dL (7-18); Globulin 4.0 g/dL (2.3-3.5); Glucose Level 91.0 mg/dL (74-106); Lipase 45.0 U/L (13-75); Potassium 4.3 mEq/L (3.5-5.1)
--- NOTE | 2025-03-29 04:05 | RAD REPORT ---
EXAM: CT Abdomen and Pelvis With Intravenous Contrast (59419, [id number]) CLINICAL HISTORY: 50 years Female abd pain. TECHNIQUE: Axial computed tomography images of the abdomen and pelvis with intravenous contrast. Sagittal and coronal reformatted images were created and reviewed. This CT exam was performed using one or more of the following dose reduction techniques: automated exposure control, adjustment of the mA a nd/or kV according to patient size, and/or use of iterative reconstruction technique. COMPARISON: 03/04/2025. FINDINGS: Lung bases: Normal. No mass. No consolidation. Liver: Normal. No mass. Gallbladder and bile ducts: Status-post cholecystectomy. No ductal dilation. Pancreas: Normal. No mass. No ductal dilation. Spleen: Normal. No splenomegaly. Adrenals: Normal. No mass. Kidneys and ureters: Normal. No obstructing stones. No solid mass. No hydronephrosis. Stomach and bowel: Normal. No obstruction. No mucosal thickening. Appendix: Normal. Bladder: Normal. No mass. Reproductive: Status post BTL. Septate uterus. Fluid is noted in the endometrial cavity. Intraperitoneal space: Normal. No free air. No fluid collection. Bones/joints: No acute fracture. No dislocation. No destructive bony process. Soft tissues: Normal. Vasculature: Normal. No abdominal aortic aneurysm. Lymph nodes: Normal. No lymphadenopathy. IMPRESSION: 1. No acute abnormality. 2. Status post cholecystectomy. 3. Nonspecific fluid noted in the endometrial cavity, possibly physiologic. Correlate with pelvic U S. Electronically signed by: Dionicio Joseph MD 03/29/2025 03:53 AM T Due to temporary technical issues with the PACS/CYPHER reporting system, reports are being иван d by the in-house radiologist without review as a courtesy to ensure prompt reporting the interpreting radiologist is fully responsible for the content of the report. Transcribed Date/Time: 03/29/2025 4:05 AM
--- NOTE | 2025-03-29 04:16 | ER ---
Nurse's Notes [facility] Name: Lucila Moncada Age: 50 yrs Sex: Female : 1975 Arrival Date: 03/28/2025 Time: 22:32 Bed 20 Private MD: Diagnosis: Pelvic and perineal pain;Pelvic pain in female Presentation: 03/28 23:06 Chief complaint: Patient states: abdominal and pelvic pain that has been ongoing for a cp4 month. Has been seen at [place] [facility] several times for the same issue with no relief. Coronavirus screen: Client denies travel out of the [place] in the last 14 days. At this time, the client does not indicate any symptoms associated with coronavirus-19. Ebola Screen: Patient negative for fever greater than or equal to 101.5 degrees Fahrenheit, and additional compatible Ebola Virus Disease symptoms Patient denies exposure to infectious person. Patient denies travel to an Ebola-affected area in the 21 days before illness onset. No symptoms or risks identified at this time. Initial Sepsis Screen: Does the patient meet any 2 criteria? HR > 90 bpm. No. Patient's initial sepsis screen is negative. Does the patient have a suspected source of infection? No. Patient's initial sepsis screen is negative. Risk Assessment: Do you want to hurt yourself or someone else? Patient reports no desire to harm self or others. Onset of symptoms is unknown. 23:06 Method Of Arrival: Ambulatory cp4 23:06 Acuity: ANA 3 cp4 Triage Assessment: 23:08 General: Appears in no apparent distress. uncomfortable, Behavior is calm, cooperative, cp4 appropriate for age. Pain: Complains of pain in pelvis Pain does not radiate. Pain currently is 10 out of 10 on a pain scale. GI: Reports lower abdominal pain. TAX INVESTIGATOR: 03/29 00:31 unknown ss12 Historical: - Allergies: 03/28 23:08 No Known Allergies; cp4 - Immunization history:: Adult Immunizations up to date. - Infectious Disease History:: Denies. - Social history:: Smoking status: Patient denies any tobacco usage or history of. Screenin/28 00:30 [facility] ED Fall Risk Assessment (Adult) History of falling in the last 3 months, ss12 including since admission No falls in past 3 months (0 pts) Confusion or Disorientation No (0 pts) Intoxicated or Sedated No (0 pts) Impaired Gait No (0 pts) Mobility Assist Device Used No (0 pt) Altered Elimination No (0 pt) Score/Fall Risk Level 0 - 2 = Low Risk Oriented to surroundings, Maintained a safe environment, Educated pt \T\ family on fall prevention, incl call for assistance when getting out of bed, Assessed \T\ reinforced patient's understanding of fall precautions, Provided non-skid footwear. Abuse screen: Denies threats or abuse. Denies injuries from another. Nutritional screening: No deficits noted. Tuberculosis screening: No symptoms or risk factors identified. Assessment: 03/28 23:00 General: Appears in no apparent distress. uncomfortable, Behavior is calm, cooperative. ss12 Pain: Complains of pain in left lower qudrant and pelvis Pain does not radiate. Pain currently is 8 out of 10 on a pain scale. Quality of pain is described as aching, crampy. Neuro: No deficits noted. Level of Consciousness is awake, alert, obeys commands, Oriented to person, place, time, situation. Cardiovascular: No deficits noted. Capillary refill < 3 seconds Patient's skin is warm and dry. Respiratory: No deficits noted. Airway is patent Respiratory effort is even, unlabored, Respiratory pattern is regular, symmetrical. GI: Bowel sounds present X 4 quads. Abd is soft and non tender X 4 quads. : No deficits noted. No signs and/or symptoms were reported regarding the genitourinary system. EENT: No deficits noted. No signs and/or symptoms were reported regarding the EENT system. Derm: No deficits noted. No signs and/or symptoms reported regarding the dermatologic system. Skin is intact, Skin is dry, Skin is pink, warm \T\ dry. Musculoskeletal: No deficits noted. No signs and/or symptoms reported regarding the musculoskeletal system. 03/29 00:00 Reassessment: Patient appears in no apparent distress at this time. Patient and/or ss12 family updated on plan of care and expected duration. Pain level reassessed. Patient is alert, oriented x 3, equal unlabored respirations, skin warm/dry/pink. 01:55 Reassessment: pt stated pain have decreased after medications. call [facility] in reach. ss12 Pain: Pain currently is 5 out of 10 on a pain scale. 03:00 Reassessment: Patient appears in no apparent distress at this time. Patient and/or ss12 family updated on plan of care and expected duration. Pain level reassessed. Patient is alert, oriented x 3, equal unlabored respirations, skin warm/dry/pink. 04:04 Reassessment: Patient appears in no apparent distress at this time. Patient and/or ss12 family updated on plan of care and expected duration. Pain level reassessed. Patient is alert, oriented x 3, equal unlabored respirations, skin warm/dry/pink. Vital Signs: 03/28 23:02 BP 149 / 93; Pulse 113; Resp 18; Pulse Ox 97% on R/A; ss12 23:06 BP 147 / 93; Pulse 110; Resp 18; Temp 98; Pulse Ox 100% ; Weight 64.41 kg; Height 4 ft. cp4 11 in. ; Pain 04/10; 03/29 00:00 BP 133 / 84; Pulse 91; Resp 18; Pulse Ox 97% on R/A; [facility] 01:58 BP 121 / 82; Pulse 88; Resp 16; Pulse Ox 98% on R/A; 12 03:00 BP 122 / 84; Pulse 89; Resp 16; Pulse Ox 98% on R/A; [facility] 04:00 BP 111 / 71; Pulse 83; Resp 16; Pulse Ox 98% on R/A; [facility] 03/28 23:06 Body Mass Index 28.68 (64.41 kg, 149.86 cm) cp4 23:06 Pain Scale: Adult cp4 [place] Coma Score: 03/28 23:02 Eye Response: spontaneous(4). Motor Response: obeys commands(6). Verbal Response: 12 oriented(5). Total: 15. ED Course: 22:34 Patient arrived in ED. im 22:35 Amar[facility] Zambrano [facility]-C [facility]. kb 22:35 Raffi Miguel MD is Attending Physician. kb 23:07 Charlie Guerra, RN is Primary Nurse. ss12 23:07 Triage completed. cp4 23:08 Arm band placed on right wrist. Patient placed in waiting room. cp4 23:34 CBC with Diff Sent. ha1 23:34 CMP Sent. ha1 23:34 Lipase Sent. ha1 23:36 UA Rfx Papo Cult if indicated Sent. ha1 23:47 Inserted saline lock: 20 gauge in right antecubital area, using aseptic technique. oe Blood collected. Flushed with 10 mL NS. 03/29 00:30 Allergy band placed. Provided Education on: plan of care. ss12 00:30 No provider procedures requiring assistance completed. ss12 00:46 CT Abd/Pelvis - IV Contrast Only In Process Unspecified. EDMS 04:14 Geeta Rutledge MD is Referral Physician. sp4 04:33 IV discontinued, intact, bleeding controlled, No redness/swelling at site. Pressure ss12 dressing applied. Administered Medications: 03/28 23:25 Drug: NS 0.9% IV 1000 ml IV at 1 bolus Per protocol; to be given as a bolus over 60 ha1 minutes Route: IV; Rate: 1 bolus; Site: right antecubital; 03/29 00:10 Follow up: IV Status: Completed infusion; IV Intake: 1000ml [facility] 03/28 23:27 Drug: Ondansetron IVP 4 mg IVP once; over 2 minutes Route: IVP; Site: right antecubital;ha1 03/29 02:00 Follow up: Response: No adverse reaction; Nausea is decreased [facility] 03/28 23:27 Drug: morphine IVP or IV 4 mg IVP once over 4 mins Route: IVP; Infused Over: 4 mins; ha1 Site: right antecubital; 03/29 01:59 Follow up: Response: No adverse reaction; Pain is decreased 12 04:30 Drug: [place] PO 10 mg-325 mg 1 tabs PO once Route: PO; ss12 04:34 Follow up: Response: No adverse reaction ss12 04:30 Drug: Dicyclomine PO 20 mg PO once Route: PO; ss12 04:34 Follow up: Response: No adverse reaction ss12 04:30 Drug: Promethazine PO 25 mg PO once Route: PO; ss12 04:35 Follow up: Response: No adverse reaction 12 Medication: 00:30 VIS not applicable for this client. ss12 Intake: 00:10 IV: 1000ml; Total: 1000ml. 12 Outcome: 04:15 Discharge ordered by . sp4 04:33 Discharged to home ambulatory, ss12 04:33 Condition: stable 04:33 Discharge instructions given to patient, family, Instructed on discharge instructions, follow up and referral plans. Demonstrated understanding of instructions, follow-up care, medications, Prescriptions given X 2, 04:34 Patient left the ED. ss12 Signatures: Dispatcher [employer] EDAmarilis Bowman, [place] JJ-Jared Woods Heidy, RN RN ha1 Raffi Miguel MD MD sp4 Alessandra Ayoub Christina cp4 Charlie Guerra RN RN ss12 Corrections: (The following items were deleted from the chart) 01:56 00:00 Reassessment: Patient appears in no apparent distress at this time. Patient ss12 and/or family updated on plan of care and expected duration. Pain level reassessed. Patient is alert, oriented x 3, equal unlabored respirations, skin warm/dry/pink. ss12
--- NOTE | 2025-03-29 04:16 | EDPHYS ---
Physician Documentation [facility] Name: Lucila Moncada Age: 50 yrs Sex: Female : 1975 Arrival Date: 03/28/2025 Time: 22:32 Bed 20 Private MD: ED Physician Raffi Miguel HPI: 03/28 23:42 This 50 yrs old Female presents to ER via Ambulatory with complaints of kb Abdominal Pain. 23:42 Patient is a 50-year-old female who presents for lower abdominal pain that started a kb month ago. States she was seen at the [place] [facility] twice and told to follow-up with her [employer]LE[employer]PER[employer]. States she followed up with Aamir on Sunday and had an ultrasound completed. Patient states she was told that her pain was due to constipation so Dr. Rutledge told her to use milk of magnesia to resolve constipation, but if that did not help the pain then she needed a hysterectomy. Patient states that she started using the milk of magnesia on Sunday and has had multiple bowel movements since then but the pain has gotten worse.. 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 - Infectious Disease History:: Denies. - Social history:: Smoking status: Patient denies any tobacco usage or history of. ROS: 23:41 Constitutional: As per HPI kb Exam: 23:41 Constitutional: This is a well developed, well nourished patient who is awake, alert, kb and in no acute distress. Head/Face: Normocephalic, atraumatic. ENT: Moist Mucous membranes Cardiovascular: Regular rate Respiratory: Respirations even and unlabored. No increased work of breathing. Talking in full sentences Skin: Warm, dry with normal turgor. Normal color. MS/ Extremity: Pulses equal, no cyanosis. Neurovascular intact. Full, normal range of motion. Neuro: Awake and alert, GCS 15, oriented to person, place, time, and situation. 23:41 Abdomen/GI: Inspection: abdomen appears normal, Bowel sounds: normal, Palpation: soft, in all quadrants, mild abdominal tenderness, in the left lower quadrant, Vital Signs: 23:02 BP 149 / 93; Pulse 113; Resp 18; Pulse Ox 97% on R/A; ss12 23:06 BP 147 / 93; Pulse 110; Resp 18; Temp 98; Pulse Ox 100% ; Weight 64.41 kg; Height 4 ft. cp4 11 in. ; Pain 10/10; 03/29 00:00 BP 133 / 84; Pulse 91; Resp 18; Pulse Ox 97% on R/A; ss12 01:58 BP 121 / 82; Pulse 88; Resp 16; Pulse Ox 98% on R/A; ss12 03:00 BP 122 / 84; Pulse 89; Resp 16; Pulse Ox 98% on R/A; ss12 04:00 BP 111 / 71; Pulse 83; Resp 16; Pulse Ox 98% on R/A; ss12 03/28 23:06 Body Mass Index 28.68 (64.41 kg, 149.86 cm) cp4 23:06 Pain Scale: Adult cp4 [place] Coma Score: 03/28 23:02 Eye Response: spontaneous(4). Motor Response: obeys commands(6). Verbal Response: ss12 oriented(5). Total: 15. MDM: 22:35 Medical Screening Exam initiated kb 23:41 Data reviewed: vital signs, nurses notes. External Records Reviewed: Outpatient radiology: CT abdomen pelvis results from March 04 reviewed. 03/29 01:55 Transition of care: After a detail discussion of the patient's case, care is kb transferred to Raffi Miguel MD. 04:00 Differential diagnosis: appendicitis, cholecystitis, Cholelithiasis, diverticulitis, sp4 Dysmenorrhea, Endometriosis, gastritis. Consideration of Admission/Observation Escalation of care including admission/observation considered. ED course: COMPARISON: 03/04/2025. FINDINGS: Lung bases: Normal. No mass. No consolidation. Liver: Normal. No mass. Gallbladder and bile ducts: Status-post cholecystectomy. No ductal dilation. Pancreas: Normal. No mass. No ductal dilation. Spleen: Normal. No splenomegaly. Adrenals: Normal. No mass. Kidneys and ureters: Normal. No obstructing stones. No solid mass. No hydronephrosis. Stomach and bowel: Normal. No obstruction. No mucosal thickening. Appendix: Normal. Bladder: Normal. No mass. Reproductive: Status post BTL. Septate uterus. Fluid is noted in the endometrial cavity. Intraperitoneal space: Normal. No free air. No fluid collection. Bones/joints: No acute fracture. No dislocation. No destructive bony process. Soft tissues: Normal. Vasculature: Normal. No abdominal aortic aneurysm. Lymph nodes: Normal. No lymphadenopathy. IMPRESSION: 1. No acute abnormality. 2. Status post cholecystectomy. 3. Nonspecific fluid noted in the endometrial cavity, possibly physiologic. Correlate with pelvic US. . 03/28 23:09 Order name: CT Abd/Pelvis - IV Contrast Only 03/28 23:09 Order name: CBC with Diff; Complete Time: 23:51 kb 03/28 23:09 Order name: CMP; Complete Time: 00:01 kb 03/28 23:09 Order name: Lipase; Complete Time: 00:01 kb 03/28 23:09 Order name: UA Rfx Papo Cult if indicated; Complete Time: 23:51 kb 03/28 23:09 Order name: IV Saline Lock; Complete Time: 23:34 kb 03/28 23:09 Order name: Labs collected and sent; Complete Time: 23:34 kb Administered Medications: 03/28 23:25 Drug: NS 0.9% IV 1000 ml IV at 1 bolus Per protocol; to be given as a bolus over 60 ha1 minutes Route: IV; Rate: 1 bolus; Site: right antecubital; 03/29 00:10 Follow up: IV Status: Completed infusion; IV Intake: 1000ml [facility] 03/28 23:27 Drug: Ondansetron IVP 4 mg IVP once; over 2 minutes Route: IVP; Site: right antecubital;ha1 03/29 02:00 Follow up: Response: No adverse reaction; Nausea is decreased [facility] 03/28 23:27 Drug: morphine IVP or IV 4 mg IVP once over 4 mins Route: IVP; Infused Over: 4 mins; ha1 Site: right antecubital; 03/29 01:59 Follow up: Response: No adverse reaction; Pain is decreased ss12 04:30 Drug: [place] PO 10 mg-325 mg 1 tabs PO once Route: PO; ss12 04:34 Follow up: Response: No adverse reaction ss12 04:30 Drug: Dicyclomine PO 20 mg PO once Route: PO; ss12 04:34 Follow up: Response: No adverse reaction ss12 04:30 Drug: Promethazine PO 25 mg PO once Route: PO; ss12 04:35 Follow up: Response: No adverse reaction ss12 Disposition: 04:14 Co-signature as Attending Physician, Raffi Miguel MD I agree with the assessment sp4 and plan of care. I reviewed the patient's care provided by Advanced Practice Provider \T\ agree w/ the diagnosis \T\ care plan. I personally saw the pt \T\ performed a substantive portion of the visit, incldng all aspects of the (History/Exam/Medical Decision Making). Disposition Summary: 03/29/25 04:15 Discharge Ordered Notes: Location: Home sp4 Problem: new sp4 Symptoms: have improved sp4 Condition: Stable sp4 Diagnosis - Pelvic and perineal pain sp4 - Pelvic pain in female sp4 Followup: sp4 - With: Geeta Rutledge MD - When: 7 - 10 days - Reason: Recheck today's complaints Discharge Instructions: - Discharge Summary Sheet sp4 - Pelvic Pain, Female sp4 Forms: - Patient Portal Instructions sp4 Prescriptions: - meloxicam 15 mg Oral tablet - take 1 tablet ORAL route daily PRN pain; 30 tablet; Refills: 0, Product sp4 Selection Permitted - dicyclomine 20 mg Oral tablet - take 1 tablet ORAL route 3 times per day PRN pain; 60 tablet; Refills: 0, sp4 Product Selection Permitted Signatures: Dispatcher [employer] EDAmarilis Bowman, PARVIZ-C [employer]ER-Kylie Short, RN RN ha1 Raffi Miguel MD MD sp4 Karine Ramos 4 Charlie Guerra RN RN ss12 Corrections: (The following items were deleted from the chart) 03/28 23:10 23:10 CBC+H.LAB.BRZ ordered. EDMS EDMS 23:10 23:10 COMPREHENSIVE METABOLIC PANEL+C.LAB.BRZ ordered. EDMS EDMS 23:10 23:10 LIPASE+C.LAB.BRZ ordered. EDMS EDMS 23:10 23:10 UA Rfx Papo Cult if indicated+U.LAB.BRZ ordered. EDMS EDMS 23:10 23:10 Abdomen Pelvis W Con+CT.RAD.BRZ ordered. EDMS EDMS
[2025-03-29] MEDS ORDERED: DICYCLOMINE HCL 10 MG CAP ONE (04:26)
[2025-03-29] MEDS ORDERED: PROMETHAZINE 25 MG TABLET ONE (04:27)
[2025-03-29] MEDS ORDERED: HYDROCODONE/APAP 10/325 TAB ONE (04:27)
[2025-03-29 04:43] VITALS: TEMP 98
[2025-03-29 04:46] VITALS: O2SAT 98
[2025-03-29 04:49] VITALS: BP 111/71
== END 2025-03-29 04:34 | disposition home or self-care (01) ==
LOC: ER 22:32
DX: R10.2 Pelvic and perineal pain (principal); R10.32 Left lower quadrant pain
CPT/HCPCS: 36415; 74177; 80053; 81001; 83690; 85025; 96361; 96374; 96375; 99284; J2405; J7030; Q0169; Q9967